=== PATIENT | female | born 1980 | race Caucasian/White ===

== ENCOUNTER 2018-09-10 13:37 | Emergency (ER) | payer OTHER, SELFPAY ==
[2018-09-10 13:40] VITALS: BP 151/83; PULSE 88; RESP 22; TEMP 36.5; O2SAT 99; BMI 22.3
--- NOTE | 2018-09-10 13:45 | DI.RAD.S_ITS ---
PROCEDURE: XR CHEST 1V INDICATIONS: chest pain TECHNIQUE: One view of the chest was acquired. COMPARISON: None. FINDINGS: Surgical changes and devices: None. Lungs and pleura: Lungs are clear. No pleural effusions or pneumothorax. Mediastinum: Mediastinal contours appear normal. Heart size is normal. Bones and chest wall: No suspicious bony lesions. Bilateral acromial-clavicular joint widening may be postoperative or related to prior shoulder injuries. Overlying soft tissues appear unremarkable. IMPRESSION: Unremarkable chest. No acute cardiopulmonary process is evident. Dictated by: Viral Siddiqui M.D. on 09/10/2018 at 13:17 Approved by: Viral Siddiqui M.D. on 09/10/2018 at 13:17
[2018-09-10 14:03] VITALS: BP 148/89; PULSE 94; RESP 9; O2SAT 100
--- NOTE | 2018-09-10 14:03 | ED.CHESTPAIN ---
HPI - Chest Pain General Chief Complaint: Chest Pain Stated Complaint: SOB,LEFT ARM TINGLY Time Seen by Provider: 09/10/18 13:49 Source: patient Mode of arrival: ambulatory Limitations: no limitations History of Present Illness HPI narrative: The patient is a 37-year-old female who presents with sudden onset chest pain. She is taking estrogen after hysterectomy and smoking. She was outside smoking when she had sudden onset shortness of breath and chest pain. she is breathing quite rapidly and quite anxious. Heart rate in the 130s. She is able to slow her breathing down but she does have carpopedal spasms. Sudden onset the left side. Related Data Home Medications Medication Instructions Recorded Confirmed acetaminophen 500 mg PO Q4H PRN #0 01/21/13 09/10/18 amitriptyline 10 mg PO BEDTIME 09/10/18 09/10/18 estradiol 1 mg PO BEDTIME 09/10/18 09/10/18 fluticasone propionate 1 spray INTRANASAL PRN PRN 09/10/18 09/10/18 naproxen sodium [Aleve] 220 mg PO BID PRN 09/10/18 09/10/18 tizanidine 4 mg PO BID PRN 09/10/18 09/10/18 Allergies Allergy/AdvReac Type Severity Reaction Status Date / Time HYDROCODONE Allergy Unknown Uncoded 08/23/17 12:25 Review of Systems Review of Systems ROS Unobtainable: All systems reviewed & are unremarkable except as noted in HPI and below Constitutional Denies chills, Denies fever(s), Denies lethargy and Denies weakness Cardiovascular Reports chest pain, Reports palpitations and Reports dyspnea Respiratory Reports dyspnea Gastrointestinal Gastrointestinal: Denies abdominal pain, Denies change in bowel habits, Denies diarrhea, Denies nausea and Denies vomiting Genitourinary Denies hematuria, Denies flank pain, Denies urinary incontinence and Denies urinary urgency Musculoskeletal Denies back pain, Denies muscle weakness, Denies numbness and Denies tingling Integumentary/Breasts Denies pruritus, Denies erythema, Denies rash and Denies wounds Neurologic Denies confusion, Denies numbness, Denies tingling and Denies weakness Psychiatric Denies anxiety, Denies confusion, Denies depression, Denies homicidal ideation and Denies suicidal ideation Endocrine Reports palpitations [facility] Medical History History of hysterectomy (Acute) Social History Smoking Status: Current every day smoker Social History Smoking Status: Current every day smoker Exam Initial Vital Signs Initial Vital Signs: Vital Signs Temperature 97.7 F 09/10/18 13:40 Pulse Rate 88 09/10/18 13:40 Respiratory Rate 22 09/10/18 13:40 Blood Pressure 151/83 H 09/10/18 13:40 Pulse Oximetry 99 09/10/18 13:40 GENERAL: Alert very anxious female and in no acute distress. HEENT: Head atraumatic,EOMI, pupils reactiv CARDIOVASCULAR: Tachycardic no murmur RESPIRATORY: No respiratory distress no wheezing no rhonchi breath sounds equal bilaterally ABDOMEN: Soft, nontender. Normoactive bowel sounds all 4 quadrants. No guarding or rebound. EXTREMITIES: Normal range of motion, no clubbing or edema. Neurovascularly intact. carpal pedal spasms present NEUROLOGICAL: Alert and oriented x4.Normal gait and speech. Cranial nerves II through XII grossly intact. SKIN: Warm, dry, no laceration, no petechiae, no rashes or lesions. Scores PERC Score Age greater than or equal to 50 years: No Heart rate greater than or equal to 100 bpm: Yes Room Air O2 Sat less than 95%: No Unilateral leg swelling: No Recent trauma or surgery: No Hemoptysis: No Prior PE or DVT: No Hormone Use: Yes Total PERC Score: 2 Wells' Criteria for PE Clinical signs and symptoms of PE: Yes PE is #1 Dx or equally likely: No Heart rate > 100: Yes Immobilization at least 3 days or surg in previous 4 weeks: No History of PE or DVT: No Hemoptysis: No Malignancy w/Treatment within 6 months or palliative: No Wells' PE Score total: 4.5 Course Orders Ordered: ED Orders 09/10/18 13:45 XR chest 1V Stat EKG-12 Lead Stat 09/10/18 13:55 Complete Blood Count AUTO DIFF Stat Comprehensive Metabolic Panel Stat D Dimer Stat Lipase Stat Partial Thromboplastin Time Stat Prothrombin Time INR Stat Troponin & CK Cardiac Panel Stat Discontinued Medications Lorazepam (Ativan) 1 mg IV NOW ONE Stop: 09/10/18 14:04 Last Admin: 09/10/18 14:05 Dose: 1 mg Vital Signs - 8 hr 09/10/18 13:40 09/10/18 14:03 09/10/18 14:30 Temperature 97.7 F Pulse Rate 88 94 H 67 Respiratory Rate 22 9 L 12 Blood Pressure 151/83 H Blood Pressure [Left Arm] 148/89 H 101/64 Pulse Oximetry 99 100 94 09/10/18 15:00 09/10/18 15:30 Temperature Pulse Rate 72 72 Respiratory Rate 12 Blood Pressure Blood Pressure [Left Arm] 100/70 103/66 Pulse Oximetry 93 95 MDM - Chest Pain Lab Data Attestation: I reviewed the patient's lab results. Result diagrams: 09/10/18 13:55 09/10/18 13:55 Lab Results 09/10/18 09/10/18 09/10/18 Range/Units 13:55 13:55 13:55 WBC 7.9 (4.5-11.0) X10^3/uL RBC 4.78 (4.0-5.2) X10^6/uL Hgb 15.0 (12.0-16.0) g/dL Hct 44.3 (36-46) % MCV 92.7 (80-100) fL MCH 31.4 (26-34) PG MCHC 33.9 (30-36) % RDW 13.1 (11.6-14.8) % Plt Count 289 (150-400) X10^3/uL Neut % (Auto) 48.0 L (50-75) % Lymph % (Auto) 44.0 H (25-40) % [place] % (Auto) 5.8 (3-14) % Eos % (Auto) 1.8 L (2-4) % Baso % (Auto) 0.4 (0-2) % Neut # (Auto) 3800 (2341-3916) /uL Lymph # (Auto) 3500 (8053-3006) /uL [place] # (Auto) 500 (0-900) /uL Eos # (Auto) 100 (0-450) /uL Baso # (Auto) 0 (0-100) /uL PT 10.8 (10.1-12.7) SECONDS INR 0.9 (0.9-1.3) APTT 32 (26.4-36.2) SECONDS D-Dimer (<230) ng/mL Sodium 138 (137-145) mmol/L Potassium 3.4 (3.4-5.1) mmol/L Chloride 102 (98-107) mmol/L Carbon Dioxide 22 (22-32) mmol/L BUN 11 (7-17) mg/dL Creatinine 0.90 (0.52-1.04) mg/dL Estimated GFR > 60.0 (>60) mL/min BUN/Creatinine Ratio 12.2 (6-22) Glucose 111 H (70-100) mg/dL Calcium 9.6 (8.4-10.2) mg/dL Total Bilirubin 0.5 (0.2-1.3) mg/dL AST 24 (14-36) IU/L ALT 24 (9-52) IU/L Alkaline Phosphatase 84 (38-126) U/L Total Creatine Kinase 77 (30-135) U/L CK-MB (CK-2) TNP CK-MB (CK-2) Rel Index TNP Troponin I < 0.012 (0.01-0.034) ng/mL Total Protein 8.1 (6.3-8.2) g/dL Albumin 5.1 H (3.5-5.0) g/dL Globulin 3.0 (1.7-4.1) g/dL Albumin/Globulin Ratio 1.7 (1.0-2.8) Lipase 93 (23-300) U/L / Range/Units 13:55 WBC (4.5-11.0) X10^3/uL RBC (4.0-5.2) X10^6/uL Hgb (12.0-16.0) g/dL Hct (36-46) % MCV (80-100) fL MCH (26-34) PG MCHC (30-36) % RDW (11.6-14.8) % Plt Count (150-400) X10^3/uL Neut % (Auto) (50-75) % Lymph % (Auto) (25-40) % [place] % (Auto) (3-14) % Eos % (Auto) (2-4) % Baso % (Auto) (0-2) % Neut # (Auto) (9230-4751) /uL Lymph # (Auto) (3467-3278) /uL [place] # (Auto) (0-900) /uL Eos # (Auto) (0-450) /uL Baso # (Auto) (0-100) /uL PT (10.1-12.7) SECONDS INR (0.9-1.3) APTT (26.4-36.2) SECONDS D-Dimer < 200 (<230) ng/mL Sodium (137-145) mmol/L Potassium (3.4-5.1) mmol/L Chloride (98-107) mmol/L Carbon Dioxide (22-32) mmol/L BUN (7-17) mg/dL Creatinine (0.52-1.04) mg/dL Estimated GFR (>60) mL/min BUN/Creatinine Ratio (6-22) Glucose (70-100) mg/dL Calcium (8.4-10.2) mg/dL Total Bilirubin (0.2-1.3) mg/dL AST (14-36) IU/L ALT (9-52) IU/L Alkaline Phosphatase (38-126) U/L Total Creatine Kinase (30-135) U/L CK-MB (CK-2) CK-MB (CK-2) Rel Index Troponin I (0.01-0.034) ng/mL Total Protein (6.3-8.2) g/dL Albumin (3.5-5.0) g/dL Globulin (1.7-4.1) g/dL Albumin/Globulin Ratio (1.0-2.8) Lipase (23-300) U/L Imaging Data Chest x-ray: Radiologist's impression: PROCEDURE: XR CHEST 1V INDICATIONS: chest pain TECHNIQUE: One view of the chest was acquired. COMPARISON: None. FINDINGS: Surgical changes and devices: None. Lungs and pleura: Lungs are clear. No pleural effusions or pneumothorax. Mediastinum: Mediastinal contours appear normal. Heart size is normal. Bones and chest wall: No suspicious bony lesions. Bilateral acromial-clavicular joint widening may be postoperative or related to prior shoulder injuries. Overlying soft tissues appear unremarkable. IMPRESSION: Unremarkable chest. No acute cardiopulmonary process is evident. Dictated by: Viral Siddiqui M.D. on 09/10/2018 at 13:17 ECG Data Attestation: I personally reviewed and interpreted this ECG as follows: Prior ECG tracings: not available for review Interpretation: Normal sinus rhythm rate 67 SC interval 137, QTC [address] changes no T-wave inversion MDM Narrative Medical decision making narrative: Overall slow her breathing down Ativan helped significantly. Carpal pedal spasms and tachycardia consistent with anxiety reaction. D-dimer negative low risk for PE. X-ray negative for pneumothorax. Overall feeling much better. I think that clinically his this is an anxiety reaction Discharge Plan Departure Patient Disposition: Home Clinical Impression: Anxiety Discharge Date/Time: 09/10/18 15:57 Interventions: ED Discharge Assessment Last Done: 09/10/18 15:55 Instructions: DI for Anxiety -- Adult Activity Restrictions/Additional Instructions: *You have been diagnosed with anxiety reaction *What to do: Stop smoking. May need long-term anxiety medication if this becomes a problem however at this time I do not believe you need medication started *Continue to take medications as directed *Follow up with your primary care provider in 2-3 days *Return to ER if you should have increasing chest pain, shortness of breath or any new, worsening or concerning symptoms Prescriptions: No Action acetaminophen 500 mg Tablet 500 mg PO Q4H PRN (Reason: pain) Qty: 0 RF: 0 tizanidine 4 mg tablet 4 mg PO BID PRN (Reason: Muscle Spasm) RF: 0 estradiol 1 mg tablet 1 mg PO BEDTIME RF: 0 amitriptyline 10 mg tablet 10 mg PO BEDTIME RF: 0 fluticasone propionate 50 mcg/actuation spray,suspension 1 spray Intranasal PRN PRN (Reason: Allergy Symptoms) RF: 0 naproxen sodium [Aleve] 220 mg Tablet 220 mg PO BID PRN (Reason: pain) RF: 0
[2018-09-10] MEDS: LORazepam 2 MG/ML SYRINGE 1 MG IV (14:05)
[2018-09-10 14:08] LABS: Add Manual Diff / Slide Review NO; Basophils Absolute Auto 0 /uL (0-100); Basophils Percent Auto 0.4 % (0-2); Eosinophils Absolute Auto 100 /uL (0-450); Eosinophils Percent Auto 1.8 % (2-4); Hematocrit 44.3 % (36-46); Lymphocytes Absolute Auto 3500 /uL (1100-4500); Mean Corpuscular HGB Conc 33.9 % (30-36); Mean Corpuscular Hemoglobin 31.4 PG (26-34); Mean Corpuscular Volume 92.7 fL (80-100); Monocytes Absolute Auto 500 /uL (0-900); Monocytes Percent Auto 5.8 % (3-14); Neutrophils Absolute Auto 3800 /uL (1500-7000); Platelet Count 289 X10^3/uL (150-400); Red Blood Cell Count 4.78 X10^6/uL (4.0-5.2); Red Cell Distribution Width 13.1 % (11.6-14.8); White Blood Cell Count 7.9 X10^3/uL (4.5-11.0)
--- NOTE | 2018-09-10 14:08 | ED_ITS ---
HPI - Chest Pain General Chief Complaint: Chest Pain Stated Complaint: SOB,LEFT ARM TINGLY Time Seen by Provider: 09/10/18 13:49 Source: patient Mode of arrival: ambulatory Limitations: no limitations History of Present Illness HPI narrative: The patient is a 37-year-old female who presents with sudden onset chest pain. She is taking estrogen after hysterectomy and smoking. She was outside smoking when she had sudden onset shortness of breath and chest pain. she is breathing quite rapidly and quite anxious. Heart rate in the 130s. She is able to slow her breathing down but she does have carpopedal spasms. Sudden onset the left side. Related Data Home Medications Medication Instructions Recorded Confirmed acetaminophen 500 mg PO Q4H PRN #0 01/21/13 09/10/18 amitriptyline 10 mg PO BEDTIME 09/10/18 09/10/18 estradiol 1 mg PO BEDTIME 09/10/18 09/10/18 fluticasone propionate 1 spray INTRANASAL PRN PRN 09/10/18 09/10/18 naproxen sodium [Aleve] 220 mg PO BID PRN 09/10/18 09/10/18 tizanidine 4 mg PO BID PRN 09/10/18 09/10/18 Allergies Allergy/AdvReac Type Severity Reaction Status Date / Time HYDROCODONE Allergy Unknown Uncoded 08/23/17 12:25 Review of Systems Review of Systems ROS Unobtainable: All systems reviewed & are unremarkable except as noted in HPI and below Constitutional Denies chills, Denies fever(s), Denies lethargy and Denies weakness Cardiovascular Reports chest pain, Reports palpitations and Reports dyspnea Respiratory Reports dyspnea Gastrointestinal Gastrointestinal: Denies abdominal pain, Denies change in bowel habits, Denies diarrhea, Denies nausea and Denies vomiting Genitourinary Denies hematuria, Denies flank pain, Denies urinary incontinence and Denies urinary urgency Musculoskeletal Denies back pain, Denies muscle weakness, Denies numbness and Denies tingling Integumentary/Breasts Denies pruritus, Denies erythema, Denies rash and Denies wounds Neurologic Denies confusion, Denies numbness, Denies tingling and Denies weakness Psychiatric Denies anxiety, Denies confusion, Denies depression, Denies homicidal ideation and Denies suicidal ideation Endocrine Reports palpitations [facility] Medical History History of hysterectomy (Acute) Social History Smoking Status: Current every day smoker Social History Smoking Status: Current every day smoker Exam Initial Vital Signs Initial Vital Signs: Vital Signs Temperature 97.7 F 09/10/18 13:40 Pulse Rate 88 09/10/18 13:40 Respiratory Rate 22 09/10/18 13:40 Blood Pressure 151/83 H 09/10/18 13:40 Pulse Oximetry 99 09/10/18 13:40 GENERAL: Alert very anxious female and in no acute distress. HEENT: Head atraumatic,EOMI, pupils reactiv CARDIOVASCULAR: Tachycardic no murmur RESPIRATORY: No respiratory distress no wheezing no rhonchi breath sounds equal bilaterally ABDOMEN: Soft, nontender. Normoactive bowel sounds all 4 quadrants. No guarding or rebound. EXTREMITIES: Normal range of motion, no clubbing or edema. Neurovascularly intact. carpal pedal spasms present NEUROLOGICAL: Alert and oriented x4.Normal gait and speech. Cranial nerves II through XII grossly intact. SKIN: Warm, dry, no laceration, no petechiae, no rashes or lesions. Scores PERC Score Age greater than or equal to 50 years: No Heart rate greater than or equal to 100 bpm: Yes Room Air O2 Sat less than 95%: No Unilateral leg swelling: No Recent trauma or surgery: No Hemoptysis: No Prior PE or DVT: No Hormone Use: Yes Total PERC Score: 2 Wells' Criteria for PE Clinical signs and symptoms of PE: Yes PE is #1 Dx or equally likely: No Heart rate > 100: Yes Immobilization at least 3 days or surg in previous 4 weeks: No History of PE or DVT: No Hemoptysis: No Malignancy w/Treatment within 6 months or palliative: No Wells' PE Score total: 4.5 Course Orders Ordered: ED Orders 09/10/18 13:45 XR chest 1V Stat EKG-12 Lead Stat 09/10/18 13:55 Complete Blood Count AUTO DIFF Stat Comprehensive Metabolic Panel Stat D Dimer Stat Lipase Stat Partial Thromboplastin Time Stat Prothrombin Time INR Stat Troponin & CK Cardiac Panel Stat Discontinued Medications Lorazepam (Ativan) 1 mg IV NOW ONE Stop: 09/10/18 14:04 Last Admin: 09/10/18 14:05 Dose: 1 mg Vital Signs - 8 hr 09/10/18 13:40 09/10/18 14:03 09/10/18 14:30 Temperature 97.7 F Pulse Rate 88 94 H 67 Respiratory Rate 22 9 L 12 Blood Pressure 151/83 H Blood Pressure [Left Arm] 148/89 H 101/64 Pulse Oximetry 99 100 94 09/10/18 15:00 09/10/18 15:30 Temperature Pulse Rate 72 72 Respiratory Rate 12 Blood Pressure Blood Pressure [Left Arm] 100/70 103/66 Pulse Oximetry 93 95 MDM - Chest Pain Lab Data Attestation: I reviewed the patient's lab results. Result diagrams: 09/10/18 13:55 09/10/18 13:55 Lab Results 09/10/18 09/10/18 09/10/18 Range/Units 13:55 13:55 13:55 WBC 7.9 (4.5-11.0) X10^3/uL RBC 4.78 (4.0-5.2) X10^6/uL Hgb 15.0 (12.0-16.0) g/dL Hct 44.3 (36-46) % MCV 92.7 (80-100) fL MCH 31.4 (26-34) PG MCHC 33.9 (30-36) % RDW 13.1 (11.6-14.8) % Plt Count 289 (150-400) X10^3/uL Neut % (Auto) 48.0 L (50-75) % Lymph % (Auto) 44.0 H (25-40) % [place] % (Auto) 5.8 (3-14) % Eos % (Auto) 1.8 L (2-4) % Baso % (Auto) 0.4 (0-2) % Neut # (Auto) 3800 (1802-8866) /uL Lymph # (Auto) 3500 (7059-1497) /uL [place] # (Auto) 500 (0-900) /uL Eos # (Auto) 100 (0-450) /uL Baso # (Auto) 0 (0-100) /uL PT 10.8 (10.1-12.7) SECONDS INR 0.9 (0.9-1.3) APTT 32 (26.4-36.2) SECONDS D-Dimer (<230) ng/mL Sodium 138 (137-145) mmol/L Potassium 3.4 (3.4-5.1) mmol/L Chloride 102 (98-107) mmol/L Carbon Dioxide 22 (22-32) mmol/L BUN 11 (7-17) mg/dL Creatinine 0.90 (0.52-1.04) mg/dL Estimated GFR > 60.0 (>60) mL/min BUN/Creatinine Ratio 12.2 (6-22) Glucose 111 H (70-100) mg/dL Calcium 9.6 (8.4-10.2) mg/dL Total Bilirubin 0.5 (0.2-1.3) mg/dL AST 24 (14-36) IU/L ALT 24 (9-52) IU/L Alkaline Phosphatase 84 (38-126) U/L Total Creatine Kinase 77 (30-135) U/L CK-MB (CK-2) TNP CK-MB (CK-2) Rel Index TNP Troponin I < 0.012 (0.01-0.034) ng/mL Total Protein 8.1 (6.3-8.2) g/dL Albumin 5.1 H (3.5-5.0) g/dL Globulin 3.0 (1.7-4.1) g/dL Albumin/Globulin Ratio 1.7 (1.0-2.8) Lipase 93 (23-300) U/L / Range/Units 13:55 WBC (4.5-11.0) X10^3/uL RBC (4.0-5.2) X10^6/uL Hgb (12.0-16.0) g/dL Hct (36-46) % MCV (80-100) fL MCH (26-34) PG MCHC (30-36) % RDW (11.6-14.8) % Plt Count (150-400) X10^3/uL Neut % (Auto) (50-75) % Lymph % (Auto) (25-40) % [place] % (Auto) (3-14) % Eos % (Auto) (2-4) % Baso % (Auto) (0-2) % Neut # (Auto) (8031-5884) /uL Lymph # (Auto) (1419-4753) /uL [place] # (Auto) (0-900) /uL Eos # (Auto) (0-450) /uL Baso # (Auto) (0-100) /uL PT (10.1-12.7) SECONDS INR (0.9-1.3) APTT (26.4-36.2) SECONDS D-Dimer < 200 (<230) ng/mL Sodium (137-145) mmol/L Potassium (3.4-5.1) mmol/L Chloride (98-107) mmol/L Carbon Dioxide (22-32) mmol/L BUN (7-17) mg/dL Creatinine (0.52-1.04) mg/dL Estimated GFR (>60) mL/min BUN/Creatinine Ratio (6-22) Glucose (70-100) mg/dL Calcium (8.4-10.2) mg/dL Total Bilirubin (0.2-1.3) mg/dL AST (14-36) IU/L ALT (9-52) IU/L Alkaline Phosphatase (38-126) U/L Total Creatine Kinase (30-135) U/L CK-MB (CK-2) CK-MB (CK-2) Rel Index Troponin I (0.01-0.034) ng/mL Total Protein (6.3-8.2) g/dL Albumin (3.5-5.0) g/dL Globulin (1.7-4.1) g/dL Albumin/Globulin Ratio (1.0-2.8) Lipase (23-300) U/L Imaging Data Chest x-ray: Radiologist's impression: PROCEDURE: XR CHEST 1V INDICATIONS: chest pain TECHNIQUE: One view of the chest was acquired. COMPARISON: None. FINDINGS: Surgical changes and devices: None. Lungs and pleura: Lungs are clear. No pleural effusions or pneumothorax. Mediastinum: Mediastinal contours appear normal. Heart size is normal. Bones and chest wall: No suspicious bony lesions. Bilateral acromial- clavicular joint widening may be postoperative or related to prior shoulder injuries. Overlying soft tissues appear unremarkable. IMPRESSION: Unremarkable chest. No acute cardiopulmonary process is evident. Dictated by: Viral Siddiqui M.D. on 09/10/2018 at 13:17 ECG Data Attestation: I personally reviewed and interpreted this ECG as follows: Prior ECG tracings: not available for review Interpretation: Normal sinus rhythm rate 67 AL interval 137, QTC [address] changes no T-wave inversion MDM Narrative Medical decision making narrative: Overall slow her breathing down Ativan helped significantly. Carpal pedal spasms and tachycardia consistent with anxiety reaction. D-dimer negative low risk for PE. X-ray negative for pneumothorax. Overall feeling much better. I think that clinically his this is an anxiety reaction Discharge Plan Departure Patient Disposition: Home Clinical Impression: Anxiety Discharge Date/Time: 09/10/18 15:57 Interventions: ED Discharge Assessment Last Done: 09/10/18 15:55 Instructions: DI for Anxiety -- Adult Activity Restrictions/Additional Instructions: *You have been diagnosed with anxiety reaction *What to do: Stop smoking. May need long-term anxiety medication if this becomes a problem however at this time I do not believe you need medication started *Continue to take medications as directed *Follow up with your primary care provider in 2-3 days *Return to ER if you should have increasing chest pain, shortness of breath or any new, worsening or concerning symptoms Prescriptions: No Action acetaminophen 500 mg Tablet 500 mg PO Q4H PRN (Reason: pain) Qty: 0 RF: 0 tizanidine 4 mg tablet 4 mg PO BID PRN (Reason: Muscle Spasm) RF: 0 estradiol 1 mg tablet 1 mg PO BEDTIME RF: 0 amitriptyline 10 mg tablet 10 mg PO BEDTIME RF: 0 fluticasone propionate 50 mcg/actuation spray,suspension 1 spray Intranasal PRN PRN (Reason: Allergy Symptoms) RF: 0 naproxen sodium [Aleve] 220 mg Tablet 220 mg PO BID PRN (Reason: pain) RF: 0
[2018-09-10 14:20] LABS: INR 0.9 (0.9-1.3); Prothrombin Time 10.8 SECONDS (10.1-12.7)
[2018-09-10 14:23] LABS: PTT Partial Thromboplastin Tim 32 SECONDS (26.4-36.2)
[2018-09-10 14:26] LABS: Alanine Aminotransferase 24 IU/L (9-52); Albumin 5.1 g/dL (3.5-5.0); Albumin Globulin Ratio 1.7 (1.0-2.8); Alkaline Phosphatase 84 U/L (38-126); Aspartate Aminotransferase 24 IU/L (14-36); BUN Creatinine Ratio 12.2 (6-22); Bilirubin Total 0.5 mg/dL (0.2-1.3); Blood Urea Nitrogen 11 mg/dL (7-17); Calcium 9.6 mg/dL (8.4-10.2); Carbon Dioxide 22 mmol/L (22-32); Chloride 102 mmol/L (98-107); Creatine Kinase 77 U/L (30-135); D Dimer < 200 ng/mL (<230); Estimated Glomerular Filt Rate > 60.0 mL/min (>60); Glucose 111 mg/dL (70-100); HEMOLYSIS < 15 (0-50); Lipase 93 U/L (23-300); Potassium 3.4 mmol/L (3.4-5.1); Sodium 138 mmol/L (137-145); Total Protein 8.1 g/dL (6.3-8.2)
--- NOTE | 2018-09-10 14:26 | PC.NURSE ---
Pt had sudden onset left arm tingling and numbness, she was outside smoking a cigarette. She drove all the way here from [place] related to her dislike of the other hospital. pt arrived walking, and anxious, carpal pedal spasms in her hands. She's since been able to relax her breathing, and understand the process that is causing her cramping in her hands and the numbness she is feeling. We talked about cigarette smoking and estrogen and how that makes her at risk for cardiovascular sequela. pt understands this.
[2018-09-10 14:30] VITALS: BP 101/64; PULSE 67; RESP 12; O2SAT 94
[2018-09-10 14:37] LABS: Troponin I < 0.012 ng/mL (0.01-0.034)
[2018-09-10 15:00] VITALS: BP 100/70; PULSE 72; O2SAT 93
[2018-09-10 15:30] VITALS: BP 103/66; PULSE 72; RESP 12; O2SAT 95
== END 2018-09-10 15:57 | disposition home or self-care (01) ==
PROVIDERS: Emergency Provider Emergency Medicine
DX: F41.9 Anxiety disorder, unspecified (principal); R07.89 Other chest pain; R06.02 Shortness of breath; R00.0 Tachycardia, unspecified; R20.2 Paresthesia of skin
CPT/HCPCS: 36591; 71045; 80053; 82550; 83690; 84484; 85025; 85379; 85610; 85730; 93005; 96374; 99283; 99285; J2060

== ENCOUNTER 2018-10-22 18:39 | Emergency (ER) | payer OTHER, SELFPAY ==
[2018-10-22 18:42] VITALS: BP 133/89; PULSE 74; RESP 16; O2SAT 100; BMI 21.9
--- NOTE | 2018-10-22 18:49 | DI.RAD.S_ITS ---
PROCEDURE: XR CHEST 1V INDICATIONS: chest pain TECHNIQUE: One view of the chest was acquired. COMPARISON: [facility], CR, XR CHEST 1V, 09/10/2018, 13:51. FINDINGS: Surgical changes and devices: None. Lungs and pleura: Lungs are clear. No pleural effusions or pneumothorax. Mediastinum: Mediastinal contours appear normal. Heart size is normal. Bones and chest wall: No suspicious bony lesions. Overlying soft tissues appear unremarkable. IMPRESSION: 1. No acute cardiopulmonary disease. Dictated by: Tenzin Khan M.D. on 10/22/2018 at 19:38 Approved by: Tenzin Khan M.D. on 10/22/2018 at 19:38
[2018-10-22 19:00] VITALS: BP 113/79; PULSE 67; RESP 13; O2SAT 99
[2018-10-22 19:07] LABS: Add Manual Diff / Slide Review NO; Basophils Absolute Auto 0 /uL (0-100); Basophils Percent Auto 0.4 % (0-2); Eosinophils Absolute Auto 200 /uL (0-450); Eosinophils Percent Auto 1.9 % (2-4); Hematocrit 40.8 % (36-46); Lymphocytes Absolute Auto 3300 /uL (1100-4500); Lymphocytes Percent Auto 35.9 % (25-40); Mean Corpuscular HGB Conc 34.2 % (30-36); Mean Corpuscular Hemoglobin 31.4 PG (26-34); Mean Corpuscular Volume 91.7 fL (80-100); Monocytes Absolute Auto 700 /uL (0-900); Monocytes Percent Auto 7.2 % (3-14); Neutrophils Absolute Auto 4900 /uL (1500-7000); Neutrophils Percent Auto 54.6 % (50-75); Platelet Count 262 X10^3/uL (150-400); Red Blood Cell Count 4.45 X10^6/uL (4.0-5.2); Red Cell Distribution Width 12.9 % (11.6-14.8); White Blood Cell Count 9.1 X10^3/uL (4.5-11.0)
[2018-10-22 19:13] LABS: HEMOLYSIS < 15 (0-50)
[2018-10-22 19:16] LABS: Prothrombin Time 11.7 SECONDS (10.1-12.7)
[2018-10-22 19:19] LABS: PTT Partial Thromboplastin Tim 34 SECONDS (26.4-36.2)
[2018-10-22 19:20] LABS: Alanine Aminotransferase 14 IU/L (9-52); Albumin 4.4 g/dL (3.5-5.0); Albumin Globulin Ratio 1.5 (1.0-2.8); Alkaline Phosphatase 64 U/L (38-126); Aspartate Aminotransferase 22 IU/L (14-36); BUN Creatinine Ratio 24.3 (6-22); Bilirubin Total 0.4 mg/dL (0.2-1.3); Blood Urea Nitrogen 17 mg/dL (7-17); Calcium 9.8 mg/dL (8.4-10.2); Carbon Dioxide 30 mmol/L (22-32); Chloride 100 mmol/L (98-107); Creatine Kinase 80 U/L (30-135); Estimated Glomerular Filt Rate > 60.0 mL/min (>60); Globulin 2.9 g/dL (1.7-4.1); Glucose 97 mg/dL (70-100); Lipase 73 U/L (23-300); Potassium 3.6 mmol/L (3.4-5.1); Sodium 138 mmol/L (137-145); Total Protein 7.3 g/dL (6.3-8.2)
[2018-10-22 19:30] VITALS: BP 114/69; PULSE 62; RESP 13; O2SAT 98
[2018-10-22 19:33] LABS: Troponin I < 0.012 ng/mL (0.01-0.034)
--- NOTE | 2018-10-22 21:08 | ED.CHESTPAIN ---
HPI - Chest Pain General Chief Complaint: Chest Pain Stated Complaint: pain in left leg Time Seen by Provider: 10/22/18 20:36 Source: patient Mode of arrival: ambulatory Limitations: no limitations History of Present Illness HPI narrative: Patient is a 37-year-old female who presents with left-sided chest discomfort in left behind the knee pain. She has had left posterior knee pain ongoing for the last 3-4 days. His she denies any swelling pain with walking. She describes as more of an ache. No pain in her calf. Today she was at work sitting at her desk when she had sudden onset left-sided chest pain, which lasted under 1 minutes and is now gone. She is being worked up for asthma by high school history teacher and going to an ross lift operator. She does have some intermittent shortness of breath. She says today was not that much worse. MD complaint: chest pain and other (Left knee pain) Related Data Home Medications Medication Instructions Recorded Confirmed acetaminophen 500 mg PO Q4H PRN #0 01/21/13 09/10/18 amitriptyline 10 mg PO BEDTIME 09/10/18 09/10/18 estradiol 1 mg PO BEDTIME 09/10/18 09/10/18 fluticasone propionate 1 spray INTRANASAL PRN PRN 09/10/18 09/10/18 naproxen sodium [Aleve] 220 mg PO BID PRN 09/10/18 09/10/18 tizanidine 4 mg PO BID PRN 09/10/18 09/10/18 Allergies Allergy/AdvReac Type Severity Reaction Status Date / Time hydrocodone Allergy Verified 10/22/18 18:42 Review of Systems Review of Systems ROS Unobtainable: All systems reviewed & are unremarkable except as noted in HPI and below Constitutional Denies fatigue Eyes Denies change in vision, Denies eye discharge, Denies irritation and Denies loss of vision ENT Ears, Nose, Mouth, and Throat: Denies change in voice, Denies neck pain and Denies sore throat Cardiovascular Reports as per HPI and Denies dyspnea Respiratory Reports as per HPI, Denies cough, Denies hemoptysis and Denies dyspnea Gastrointestinal Gastrointestinal: Denies abdominal pain, Denies change in bowel habits, Denies diarrhea, Denies nausea and Denies vomiting Genitourinary Denies hematuria, Denies flank pain, Denies urinary incontinence and Denies urinary urgency Musculoskeletal Reports as per HPI and Denies neck pain Neurologic Denies confusion and Denies loss of vision Psychiatric Denies anxiety, Denies confusion, Denies depression, Denies homicidal ideation and Denies suicidal ideation Endocrine Denies fatigue and Denies flushing [facility] Medical History History of hysterectomy (Acute) Social History Smoking Status: Current every day smoker Social History Smoking Status: Current every day smoker Exam Initial Vital Signs Initial Vital Signs: Vital Signs Pulse Rate 74 10/22/18 18:42 Respiratory Rate 16 10/22/18 18:42 Blood Pressure 133/89 10/22/18 18:42 Pulse Oximetry 100 10/22/18 18:42 GENERAL: Well-appearing, well-nourished and in no acute distress. HEENT: Head atraumatic,EOMI, pupils reactive, face symmetric, moist mucous membranes CARDIOVASCULAR: Regular rate and rhythm without murmurs, rubs or gallops. RESPIRATORY: Breath sounds equal bilaterally, no wheezes rales or rhonchi. ABDOMEN: Soft, nontender. Normoactive bowel sounds all 4 quadrants. No guarding or rebound. EXTREMITIES: Normal range of motion, no clubbing or edema. Neurovascularly intact. Left knee stable no tenderness no swelling posteriorly. No calf pain. Able flex and extend knee easily. NEUROLOGICAL: Alert and oriented x4.Normal gait and speech. Cranial nerves II through XII grossly intact. SKIN: Warm, dry, no laceration, no petechiae, no rashes or lesions. Scores PERC Score Age greater than or equal to 50 years: No Heart rate greater than or equal to 100 bpm: No Room Air O2 Sat less than 95%: No Unilateral leg swelling: No Recent trauma or surgery: No Hemoptysis: No Prior PE or DVT: No Hormone Use: Yes Total PERC Score: 1 Wells' Criteria for PE Clinical signs and symptoms of PE: No PE is #1 Dx or equally likely: No Heart rate > 100: No Immobilization at least 3 days or surg in previous 4 weeks: No History of PE or DVT: No Hemoptysis: No Malignancy w/Treatment within 6 months or palliative: No Wells' PE Score total: 0 Wells' Criteria for DVT Active Cancer (Treatment within 6 months): No Bedridden recently >3 days or major surgery within 4 weeks: No Calf Swelling >3cm compared to other leg: No Collateral (nonvericose) superficial veins present: No Entire leg swollen: No Localized tenderness along the deep vein system: Yes Pitting edema, confined to symtomatic leg: No Paralysis, paresis, or recent plaster immobilization of ext: No Previously documented DVT: No Alternative dx to DVT as likely or more likely: No Wells' criteria for DVT: 1 Course Orders Ordered: ED Orders 10/22/18 18:49 XR chest 1V Stat EKG-12 Lead Stat 10/22/18 18:59 Complete Blood Count AUTO DIFF Stat Comprehensive Metabolic Panel Stat D Dimer Stat Lipase Stat Partial Thromboplastin Time Stat Prothrombin Time INR Stat Troponin & CK Cardiac Panel Stat 10/22/18 22:21 US periph venous low extrem lt Stat Vital Signs - 8 hr 10/22/18 18:42 10/22/18 19:00 10/22/18 19:30 Pulse Rate 74 67 62 Respiratory Rate 16 13 13 Blood Pressure 133/89 Blood Pressure [Left Arm] 113/79 114/69 Pulse Oximetry 100 99 98 10/22/18 23:43 Pulse Rate 65 Respiratory Rate 15 Blood Pressure 120/85 Blood Pressure [Left Arm] Pulse Oximetry 96 MDM - Chest Pain Lab Data Attestation: I reviewed the patient's lab results. Result diagrams: 10/22/18 18:59 10/22/18 18:59 Lab Results 10/22/18 10/22/18 10/22/18 Range/Units 18:59 18:59 18:59 WBC 9.1 (4.5-11.0) X10^3/uL RBC 4.45 (4.0-5.2) X10^6/uL Hgb 14.0 (12.0-16.0) g/dL Hct 40.8 (36-46) % MCV 91.7 (80-100) fL MCH 31.4 (26-34) PG MCHC 34.2 (30-36) % RDW 12.9 (11.6-14.8) % Plt Count 262 (150-400) X10^3/uL Neut % (Auto) 54.6 (50-75) % Lymph % (Auto) 35.9 (25-40) % [place] % (Auto) 7.2 (3-14) % Eos % (Auto) 1.9 L (2-4) % Baso % (Auto) 0.4 (0-2) % Neut # (Auto) 4900 (4256-8333) /uL Lymph # (Auto) 3300 (8250-7748) /uL [place] # (Auto) 700 (0-900) /uL Eos # (Auto) 200 (0-450) /uL Baso # (Auto) 0 (0-100) /uL PT 11.7 (10.1-12.7) SECONDS INR 1.0 (0.9-1.3) APTT 34 D (26.4-36.2) SECONDS D-Dimer (<230) ng/mL Sodium 138 (137-145) mmol/L Potassium 3.6 (3.4-5.1) mmol/L Chloride 100 (98-107) mmol/L Carbon Dioxide 30 (22-32) mmol/L BUN 17 (7-17) mg/dL Creatinine 0.70 (0.52-1.04) mg/dL Estimated GFR > 60.0 (>60) mL/min BUN/Creatinine Ratio 24.3 H (6-22) Glucose 97 (70-100) mg/dL Calcium 9.8 (8.4-10.2) mg/dL Total Bilirubin 0.4 (0.2-1.3) mg/dL AST 22 (14-36) IU/L ALT 14 (9-52) IU/L Alkaline Phosphatase 64 (38-126) U/L Total Creatine Kinase 80 (30-135) U/L CK-MB (CK-2) TNP CK-MB (CK-2) Rel Index TNP Troponin I < 0.012 (0.01-0.034) ng/mL Total Protein 7.3 (6.3-8.2) g/dL Albumin 4.4 (3.5-5.0) g/dL Globulin 2.9 (1.7-4.1) g/dL Albumin/Globulin Ratio 1.5 (1.0-2.8) Lipase 73 (23-300) U/L 10/22/18 Range/Units 18:59 WBC (4.5-11.0) X10^3/uL RBC (4.0-5.2) X10^6/uL Hgb (12.0-16.0) g/dL Hct (36-46) % MCV (80-100) fL MCH (26-34) PG MCHC (30-36) % RDW (11.6-14.8) % Plt Count (150-400) X10^3/uL Neut % (Auto) (50-75) % Lymph % (Auto) (25-40) % [place] % (Auto) (3-14) % Eos % (Auto) (2-4) % Baso % (Auto) (0-2) % Neut # (Auto) (2639-9784) /uL Lymph # (Auto) (2620-8829) /uL [place] # (Auto) (0-900) /uL Eos # (Auto) (0-450) /uL Baso # (Auto) (0-100) /uL PT (10.1-12.7) SECONDS INR (0.9-1.3) APTT (26.4-36.2) SECONDS D-Dimer < 200 (<230) ng/mL Sodium (137-145) mmol/L Potassium (3.4-5.1) mmol/L Chloride (98-107) mmol/L Carbon Dioxide (22-32) mmol/L BUN (7-17) mg/dL Creatinine (0.52-1.04) mg/dL Estimated GFR (>60) mL/min BUN/Creatinine Ratio (6-22) Glucose (70-100) mg/dL Calcium (8.4-10.2) mg/dL Total Bilirubin (0.2-1.3) mg/dL AST (14-36) IU/L ALT (9-52) IU/L Alkaline Phosphatase (38-126) U/L Total Creatine Kinase (30-135) U/L CK-MB (CK-2) CK-MB (CK-2) Rel Index Troponin I (0.01-0.034) ng/mL Total Protein (6.3-8.2) g/dL Albumin (3.5-5.0) g/dL Globulin (1.7-4.1) g/dL Albumin/Globulin Ratio (1.0-2.8) Lipase (23-300) U/L Point of Care Testing Test Results Negative Urine Dip Bedside Urine Glucose Negative Bedside Urine Bilirubin - Negative Bedside Urine Ketone - Negative Urine Specific [place] 1.010 Bedside Urine Occult Blood - Negative Bedside Urine pH 7.5 Bedside Urine Protein - Negative Bedside Urine Urobilinogen - Negative Bedside Urine Nitrite - Negative Bedside Urine Leukocytes - Negative Esterase Imaging Data Chest x-ray: Radiologist's impression: PROCEDURE: XR CHEST 1V INDICATIONS: chest pain TECHNIQUE: One view of the chest was acquired. COMPARISON: [facility], , XR CHEST 1V, 09/10/2018, 13:51. FINDINGS: Surgical changes and devices: None. Lungs and pleura: Lungs are clear. No pleural effusions or pneumothorax. Mediastinum: Mediastinal contours appear normal. Heart size is normal. Bones and chest wall: No suspicious bony lesions. Overlying soft tissues appear unremarkable. IMPRESSION: 1. No acute cardiopulmonary disease. Dictated by: Tenzin Khan M.D. on 10/22/2018 at 19:38 Venous US: Radiologist's impression: mine shifter report negative for DVT ECG Data Attestation: I personally reviewed and interpreted this ECG as follows: Prior ECG tracings: available for review Interpretation: Normal sinus rhythm rate [address] changes no T-wave inversions. MDM Narrative Medical decision making narrative: Patient is low risk risk factors estrogen and nicotine/tobacco for DVT D-dimer is negative. Patient states that pain radiates from left posterior knee to her upper and lower leg. Concerned is still because of flight upcoming to [place] in 3 days. Ultrasound ordered Ultrasound is negative for DVT. Patient feels ready and able to go home. Discharge Plan Departure Patient Disposition: Home Clinical Impression: Atypical chest pain Acute knee pain Qualifiers: Laterality: left Qualified Code(s): M25.562 - Pain in left knee Discharge Date/Time: 10/22/18 23:45 Interventions: ED Discharge Assessment Last Done: 10/22/18 23:43 Instructions: Deep Vein Thrombosis, DI for Atypical Chest Pain Activity Restrictions/Additional Instructions: *You have been diagnosed with atypical chest pain, knee pain *What to do: Knee pain may be due to a Ta cyst. Blood work is reassuring today. Low risk for blood clot. I recommended that he do calf exercises and is walking on airplane every few hours to help prevent blood clots. *Continue to take medications as directed *Follow up with your primary care provider in 2-3 days *Return to ER if you should have increasing chest pain, shortness of breath, leg swelling or pain or any new, worsening or concerning symptoms Prescriptions: No Action acetaminophen 500 mg Tablet 500 mg PO Q4H PRN (Reason: pain) Qty: 0 RF: 0 tizanidine 4 mg tablet 4 mg PO BID PRN (Reason: Muscle Spasm) RF: 0 estradiol 1 mg tablet 1 mg PO BEDTIME RF: 0 amitriptyline 10 mg tablet 10 mg PO BEDTIME RF: 0 fluticasone propionate 50 mcg/actuation spray,suspension 1 spray Intranasal PRN PRN (Reason: Allergy Symptoms) RF: 0 naproxen sodium [Aleve] 220 mg Tablet 220 mg PO BID PRN (Reason: pain) RF: 0 Referrals: [facility] [Provider Group]
--- NOTE | 2018-10-22 21:21 | ED_ITS ---
HPI - Chest Pain General Chief Complaint: Chest Pain Stated Complaint: pain in left leg Time Seen by Provider: 10/22/18 20:36 Source: patient Mode of arrival: ambulatory Limitations: no limitations History of Present Illness HPI narrative: Patient is a 37-year-old female who presents with left-sided chest discomfort in left behind the knee pain. She has had left posterior knee pain ongoing for the last 3-4 days. His she denies any swelling pain with walking. She describes as more of an ache. No pain in her calf. Today she was at work sitting at her desk when she had sudden onset left-sided chest pain, whi ch lasted under 1 minutes and is now gone. She is being worked up for asthma by receivable clerk and going to an chef french. She does have some intermittent shortness of breath. She says today was not that much worse. MD complaint: chest pain and other (Left knee pain) Related Data Home Medications Medication Instructions Recorded Confirmed acetaminophen 500 mg PO Q4H PRN #0 01/21/13 09/10/18 amitriptyline 10 mg PO BEDTIME 09/10/18 09/10/18 estradiol 1 mg PO BEDTIME 09/10/18 09/10/18 fluticasone propionate 1 spray INTRANASAL PRN PRN 09/10/18 09/10/18 naproxen sodium [Aleve] 220 mg PO BID PRN 09/10/18 09/10/18 tizanidine 4 mg PO BID PRN 09/10/18 09/10/18 Allergies Allergy/AdvReac Type Severity Reaction Status Date / Time hydrocodone Allergy Verified 10/22/18 18:42 Review of Systems Review of Systems ROS Unobtainable: All systems reviewed & are unremarkable except as noted in HPI and below Constitutional Denies fatigue Eyes Denies change in vision, Denies eye discharge, Denies irritation and Denies loss of vision ENT Ears, Nose, Mouth, and Throat: Denies change in voice, Denies neck pain and Denies sore throat Cardiovascular Reports as per HPI and Denies dyspnea Respiratory Reports as per HPI, Denies cough, Denies hemoptysis and Denies dyspnea Gastrointestinal Gastrointestinal: Denies abdominal pain, Denies change in bowel habits, Denies diarrhea, Denies nausea and Denies vomiting Genitourinary Denies hematuria, Denies flank pain, Denies urinary incontinence and Denies urinary urgency Musculoskeletal Reports as per HPI and Denies neck pain Neurologic Denies confusion and Denies loss of vision Psychiatric Denies anxiety, Denies confusion, Denies depression, Denies homicidal ideation and Denies suicidal ideation Endocrine Denies fatigue and Denies flushing PFSH Medical History History of hysterectomy (Acute) Social History Smoking Status: Current every day smoker Social History Smoking Status: Current every day smoker Exam Initial Vital Signs Initial Vital Signs: Vital Signs Pulse Rate 74 10/22/18 18:42 Respiratory Rate 16 10/22/18 18:42 Blood Pressure 133/89 10/22/18 18:42 Pulse Oximetry 100 10/22/18 18:42 GENERAL: Well-appearing, well-nourished and in no acute distress. HEENT: Head atraumatic,EOMI, pupils reactive, face symmetric, moist mucous membranes CARDIOVASCULAR: Regular rate and rhythm without murmurs, rubs or gallops. RESPIRATORY: Breath sounds equal bilaterally, no wheezes rales or rhonchi. ABDOMEN: Soft, nontender. Normoactive bowel sounds all 4 quadrants. No guarding or rebound. EXTREMITIES: Normal range of motion, no clubbing or edema. Neurovascularly intact. Left knee stable no tenderness no swelling posteriorly. No calf pain. Able flex and extend knee easily. NEUROLOGICAL: Alert and oriented x4.Normal gait and speech. Cranial nerves II through XII grossly intact. SKIN: Warm, dry, no laceration, no petechiae, no rashes or lesions. Scores PERC Score Age greater than or equal to 50 years: No Heart rate greater than or equal to 100 bpm: No Room Air O2 Sat less than 95%: No Unilateral leg swelling: No Recent trauma or surgery: No Hemoptysis: No Prior PE or DVT: No Hormone Use: Yes Total PERC Score: 1 Wells' Criteria for PE Clinical signs and symptoms of PE: No PE is #1 Dx or equally likely: No Heart rate > 100: No Immobilization at least 3 days or surg in previous 4 weeks: No History of PE or DVT: No Hemoptysis: No Malignancy w/Treatment within 6 months or palliative: No Wells' PE Score total: 0 Wells' Criteria for DVT Active Cancer (Treatment within 6 months): No Bedridden recently >3 days or major surgery within 4 weeks: No Calf Swelling >3cm compared to other leg: No Collateral (nonvericose) superficial veins present: No Entire leg swollen: No Localized tenderness along the deep vein system: Yes Pitting edema, confined to symtomatic leg: No Paralysis, paresis, or recent plaster immobilization of ext: No Previously documented DVT: No Alternative dx to DVT as likely or more likely: No Wells' criteria for DVT: 1 Course Orders Ordered: ED Orders 10/22/18 18:49 XR chest 1V Stat EKG-12 Lead Stat 10/22/18 18:59 Complete Blood Count AUTO DIFF Stat Comprehensive Metabolic Panel Stat D Dimer Stat Lipase Stat Partial Thromboplastin Time Stat Prothrombin Time INR Stat Troponin & CK Cardiac Panel Stat 10/22/18 22:21 US periph venous low extrem lt Stat Vital Signs - 8 hr 10/22/18 18:42 10/22/18 19:00 10/22/18 19:30 Pulse Rate 74 67 62 Respiratory Rate 16 13 13 Blood Pressure 133/89 Blood Pressure [Left Arm] 113/79 114/69 Pulse Oximetry 100 99 98 10/22/18 23:43 Pulse Rate 65 Respiratory Rate 15 Blood Pressure 120/85 Blood Pressure [Left Arm] Pulse Oximetry 96 MDM - Chest Pain Lab Data Attestation: I reviewed the patient's lab results. Result diagrams: 10/22/18 18:59 10/22/18 18:59 Lab Results 10/22/18 10/22/18 10/22/18 Range/Units 18:59 18:59 18:59 WBC 9.1 (4.5-11.0) X10^3/uL RBC 4.45 (4.0-5.2) X10^6/uL Hgb 14.0 (12.0-16.0) g/dL Hct 40.8 (36-46) % MCV 91.7 (80-100) fL MCH 31.4 (26-34) PG MCHC 34.2 (30-36) % RDW 12.9 (11.6-14.8) % Plt Count 262 (150-400) X10^3/uL Neut % (Auto) 54.6 (50-75) % Lymph % (Auto) 35.9 (25-40) % [place] % (Auto) 7.2 (3-14) % Eos % (Auto) 1.9 L (2-4) % Baso % (Auto) 0.4 (0-2) % Neut # (Auto) 4900 (3594-7157) /uL Lymph # (Auto) 3300 (6245-3190) /uL [place] # (Auto) 700 (0-900) /uL Eos # (Auto) 200 (0-450) /uL Baso # (Auto) 0 (0-100) /uL PT 11.7 (10.1-12.7) SECONDS INR 1.0 (0.9-1.3) APTT 34 D (26.4-36.2) SECONDS D-Dimer (<230) ng/mL Sodium 138 (137-145) mmol/L Potassium 3.6 (3.4-5.1) mmol/L Chloride 100 (98-107) mmol/L Carbon Dioxide 30 (22-32) mmol/L BUN 17 (7-17) mg/dL Creatinine 0.70 (0.52-1.04) mg/dL Estimated GFR > 60.0 (>60) mL/min BUN/Creatinine Ratio 24.3 H (6-22) Glucose 97 (70-100) mg/dL Calcium 9.8 (8.4-10.2) mg/dL Total Bilirubin 0.4 (0.2-1.3) mg/dL AST 22 (14-36) IU/L ALT 14 (9-52) IU/L Alkaline Phosphatase 64 (38-126) U/L Total Creatine Kinase 80 (30-135) U/L CK-MB (CK-2) TNP CK-MB (CK-2) Rel Index TNP Troponin I < 0.012 (0.01-0.034) ng/mL Total Protein 7.3 (6.3-8.2) g/dL Albumin 4.4 (3.5-5.0) g/dL Globulin 2.9 (1.7-4.1) g/dL Albumin/Globulin Ratio 1.5 (1.0-2.8) Lipase 73 (23-300) U/L 10/22/18 Range/Units 18:59 WBC (4.5-11.0) X10^3/uL RBC (4.0-5.2) X10^6/uL Hgb (12.0-16.0) g/dL Hct (36-46) % MCV (80-100) fL MCH (26-34) PG MCHC (30-36) % RDW (11.6-14.8) % Plt Count (150-400) X10^3/uL Neut % (Auto) (50-75) % Lymph % (Auto) (25-40) % [place] % (Auto) (3-14) % Eos % (Auto) (2-4) % Baso % (Auto) (0-2) % Neut # (Auto) (4422-8255) /uL Lymph # (Auto) (6560-6921) /uL [place] # (Auto) (0-900) /uL Eos # (Auto) (0-450) /uL Baso # (Auto) (0-100) /uL PT (10.1-12.7) SECONDS INR (0.9-1.3) APTT (26.4-36.2) SECONDS D-Dimer < 200 (<230) ng/mL Sodium (137-145) mmol/L Potassium (3.4-5.1) mmol/L Chloride (98-107) mmol/L Carbon Dioxide (22-32) mmol/L BUN (7-17) mg/dL Creatinine (0.52-1.04) mg/dL Estimated GFR (>60) mL/min BUN/Creatinine Ratio (6-22) Glucose (70-100) mg/dL Calcium (8.4-10.2) mg/dL Total Bilirubin (0.2-1.3) mg/dL AST (14-36) IU/L ALT (9-52) IU/L Alkaline Phosphatase (38-126) U/L Total Creatine Kinase (30-135) U/L CK-MB (CK-2) CK-MB (CK-2) Rel Index Troponin I (0.01-0.034) ng/mL Total Protein (6.3-8.2) g/dL Albumin (3.5-5.0) g/dL Globulin (1.7-4.1) g/dL Albumin/Globulin Ratio (1.0-2.8) Lipase (23-300) U/L Point of Care Testing Test Results Negative Urine Dip Bedside Urine Glucose Negative Bedside Urine Bilirubin - Negative Bedside Urine Ketone - Negative Urine Specific [place] 1.010 Bedside Urine Occult Blood - Negative Bedside Urine pH 7.5 Bedside Urine Protein - Negative Bedside Urine Urobilinogen - Negative Bedside Urine Nitrite - Negative Bedside Urine Leukocytes - Negative Esterase Imaging Data Chest x-ray: Radiologist's impression: PROCEDURE: XR CHEST 1V INDICATIONS: chest pain TECHNIQUE: One view of the chest was acquired. COMPARISON: [facility], , XR CHEST 1V, 09/10/2018, 13:51. FINDINGS: Surgical changes and devices: None. Lungs and pleura: Lungs are clear. No pleural effusions or pneumothorax. Mediastinum: Mediastinal contours appear normal. Heart size is normal. Bones and chest wall: No suspicious bony lesions. Overlying soft tissues appear unremarkable. IMPRESSION: 1. No acute cardiopulmonary disease. Dictated by: Tenzin Khan M.D. on 10/22/2018 at 19:38 Venous US: Radiologist's impression: senior policy analyst report negative for DVT ECG Data Attestation: I personally reviewed and interpreted this ECG as follows: Prior ECG tracings: available for review Interpretation: Normal sinus rhythm rate [address] changes no T-wave inversions. MDM Narrative Medical decision making narrative: Patient is low risk risk factors estrogen and nicotine/tobacco for DVT D-dimer is negative. Patient states that pain radiates from left posterior knee to her upper and lower leg. Concerned is still because of flight upcoming to [place] in 3 days. Ultrasound ordered Ultrasound is negative for DVT. Patient feels ready and able to go home. Discharge Plan Departure Patient Disposition: Home Clinical Impression: Atypical chest pain Acute knee pain Qualifiers: Laterality: left Qualified Code(s): M25.562 - Pain in left knee Discharge Date/Time: 10/22/18 23:45 Interventions: ED Discharge Assessment Last Done: 10/22/18 23:43 Instructions: Deep Vein Thrombosis, DI for Atypical Chest Pain Activity Restrictions/Additional Instructions: *You have been diagnosed with atypical chest pain, knee pain *What to do: Knee pain may be due to a Ta cyst. Blood work is reassuring today. Low risk for blood clot. I recommended that he do calf exercises and is walking on airplane every few hours to help prevent blood clots. *Continue to take medications as directed *Follow up with your primary care provider in 2-3 days *Return to ER if you should have increasing chest pain, shortness of breath, leg swelling or pain or any new, worsening or concerning symptoms Prescriptions: No Action acetaminophen 500 mg Tablet 500 mg PO Q4H PRN (Reason: pain) Qty: 0 RF: 0 tizanidine 4 mg tablet 4 mg PO BID PRN (Reason: Muscle Spasm) RF: 0 estradiol 1 mg tablet 1 mg PO BEDTIME RF: 0 amitriptyline 10 mg tablet 10 mg PO BEDTIME RF: 0 fluticasone propionate 50 mcg/actuation spray,suspension 1 spray Intranasal PRN PRN (Reason: Allergy Symptoms) RF: 0 naproxen sodium [Aleve] 220 mg Tablet 220 mg PO BID PRN (Reason: pain) RF: 0 Referrals: [facility] [Provider Group]
[2018-10-22 21:56] LABS: D Dimer < 200 ng/mL (<230)
--- NOTE | 2018-10-22 22:21 | DI.US.S_ITS ---
PROCEDURE: US PERIPH VENOUS LOW EXTREM LT INDICATIONS: PAIN BEHIND KNEE TECHNIQUE: Real-time imaging, as well as color and pulse Doppler interrogation, were performed of the lower extremity deep veins from the inguinal ligament to the popliteal fossa. COMPARISON: None. FINDINGS: The common femoral, femoral and popliteal veins are normally compressible, and free of intraluminal thrombus. Color and pulse Doppler demonstrate normal phasic intraluminal flow. There is normal augmentation response to distal compression maneuver. IMPRESSION: No DVT in the left lower extremity. Dictated by: Becka Bob M.D. on 10/23/2018 at 9:22 Approved by: Becka Bob M.D. on 10/23/2018 at 9:22
[2018-10-22 23:43] VITALS: BP 120/85; PULSE 65; RESP 15; O2SAT 96
== END 2018-10-22 23:45 | disposition home or self-care (01) ==
PROVIDERS: Emergency Provider Emergency Medicine
DX: R07.89 Other chest pain (principal); M25.562 Pain in left knee
CPT/HCPCS: 36591; 71045; 80053; 81003; 81025; 82550; 83690; 84484; 85025; 85379; 85610; 85730; 93005; 93971; 99283; 99285

== ENCOUNTER 2018-11-21 08:08 | Emergency (ER) | payer OTHER, SELFPAY ==
[2018-11-21 08:10] VITALS: BP 140/90; PULSE 66; RESP 18; TEMP 36.8; O2SAT 100; BMI 21.2
--- NOTE | 2018-11-21 08:14 | DI.RAD.S_ITS ---
PROCEDURE: XR CHEST 1V INDICATIONS: chest pain TECHNIQUE: One view of the chest was acquired. COMPARISON: [facility], CR, XR CHEST 1V, 10/22/2018, 18:52. [facility], CR, XR CHEST 1V, 09/10/2018, 13:51. FINDINGS: Surgical changes and devices: None. Lungs and pleura: Lungs are clear. No pleural effusions or pneumothorax. Mediastinum: Mediastinal contours appear normal. Heart size is normal. Bones and chest wall: No suspicious bony lesions. Overlying soft tissues appear unremarkable. IMPRESSION: Normal for age, source of current chest pain symptoms is not seen. Dictated by: Clint Schafeer M.D. on 11/21/2018 at 8:54 Approved by: Clint Schaefer M.D. on 11/21/2018 at 8:57
[2018-11-21 08:25] LABS: Add Manual Diff / Slide Review NO; Basophils Absolute Auto 0 /uL (0-100); Basophils Percent Auto 0.6 % (0-2); Eosinophils Absolute Auto 100 /uL (0-450); Eosinophils Percent Auto 1.5 % (2-4); Hematocrit 42.6 % (36-46); Hemoglobin 14.5 g/dL (12.0-16.0); Lymphocytes Absolute Auto 2400 /uL (1100-4500); Mean Corpuscular HGB Conc 34.1 % (30-36); Mean Corpuscular Hemoglobin 31.3 PG (26-34); Mean Corpuscular Volume 91.7 fL (80-100); Monocytes Absolute Auto 400 /uL (0-900); Monocytes Percent Auto 6.5 % (3-14); Neutrophils Absolute Auto 3300 /uL (1500-7000); Neutrophils Percent Auto 52.4 % (50-75); Platelet Count 252 X10^3/uL (150-400); Red Blood Cell Count 4.64 X10^6/uL (4.0-5.2); Red Cell Distribution Width 12.5 % (11.6-14.8); White Blood Cell Count 6.3 X10^3/uL (4.5-11.0)
--- NOTE | 2018-11-21 08:25 | ED.CHESTPAIN ---
HPI - Chest Pain General Chief Complaint: Chest Pain Stated Complaint: chest pain Time Seen by Provider: 11/21/18 08:12 Source: patient and old records reviewed Mode of arrival: ambulatory Limitations: no limitations History of Present Illness HPI narrative: 38-year-old female comes to the emergency with complaint of chest pain. Patient states that it sort of on the left substernal but also the left breast and to the left the breast. Patient states that it has been on and off. She states she also sometimes short of breath. She also states she has been very anxious. She has been nauseated. Patient has not had any fevers. She has not had any vomiting. Patient states that she wakes up with this most mornings. She will try to go for to drive to calm her nerves but she still uncomfortable. She has trouble giving me a time frame for when the chest pain resolves but it is intermittent. Nothing seems to be clearly exacerbating other than anxiety. Nothing seems to make it better other than when she was taking amitriptyline she had less episodes. Patient denies any black or bloody stools but she has had some diarrhea for the last 24 hours about 4 times. No urinary symptoms, no vaginal bleeding or discharge. No swelling in her lower extremities. Patient states she does have a headache. She also feels like a warmth rashes over her from her head through her body with these episodes. She has a intermittent smoker, she does take estrogen and is post hysterectomy. She stopped her amitriptyline in order to do pulmonary function testing she has not had the final results but prior to testing was told by her solid waste technician they suspected asthma. The amitriptyline was for fibromyalgia. She states that it resolved her pain from her fibromyalgia although she has had discomfort between her shoulder blades for years. She takes tinazadine sometimes for jaw pain. She denies any other medical issues, no other surgeries besides or hysterectomy. Denies allergies to medications. Denies alcohol, denies illicit. Family history positive for asbestos in the father, and who had asthma another anti from ?hardening of the lungs?. No other known cardiac or embolic history. Related Data Home Medications Medication Instructions Recorded Confirmed acetaminophen 500 mg PO Q4H PRN #0 01/21/13 11/21/18 amitriptyline 10 mg PO BEDTIME 09/10/18 11/21/18 tizanidine 4 mg PO BID PRN 09/10/18 11/21/18 albuterol sulfate [ProAir HFA] 1 puff INHALATION PRN PRN 11/21/18 11/21/18 estradiol [Estrace] 1 mg PO DAILY 11/21/18 11/21/18 fluticasone propion-salmeterol 1 puff INHALATION BID 11/21/18 11/21/18 [Advair HFA] omeprazole 20 mg PO DAILY 11/21/18 11/21/18 Previous Rx's Medication Instructions Recorded ondansetron HCl [Zofran] 4 mg PO QID PRN #10 tab 11/21/18 Allergies Allergy/AdvReac Type Severity Reaction Status Date / Time hydrocodone Allergy Verified 11/21/18 08:21 Review of Systems Review of Systems ROS Unobtainable: All systems reviewed & are unremarkable except as noted in HPI and below Constitutional Denies chills, Denies fatigue, Denies fever(s), Denies lethargy and Denies weakness Cardiovascular Reports chest pain (Intermittent, no clear causes), Denies chest pain with activity, Denies diaphoresis, Denies syncope, Denies rapid heart rate, Denies edema, Denies irregular heart rhythm, Reports lightheadedness, Denies palpitations, Reports dyspnea, Denies dyspnea on exertion and Denies orthopnea Respiratory Denies change in phlegm color, Denies chest congestion, Denies cough, Denies hemoptysis, Denies pain on inspiration, Reports dyspnea, Denies dyspnea on exertion and Denies wheezing Gastrointestinal Gastrointestinal: Denies abdominal pain, Denies melena, Denies hematochezia, Denies change in bowel habits, Reports diarrhea (For time), Reports nausea and Denies vomiting Genitourinary Denies hematuria, Denies urinary frequency, Denies dysuria, Denies flank pain and Denies urinary urgency Musculoskeletal Reports back pain (Chronic discomfort between shoulder blades) and Reports other (Fibromyalgia) Integumentary/Breasts Reports pruritus and Reports rash (Itchy spot) Neurologic Denies syncope and Denies weakness Psychiatric Reports anxiety and Reports panic attacks Endocrine Denies fatigue and Denies palpitations Allergic/Immunologic Denies wheezing [facility] Medical History (Updated 11/21/18 @ 08:43 by Agatha Macedo DO) Fibromyalgia (Chronic) History of hysterectomy (Chronic) Family History (Updated 11/21/18 @ 08:37 by Agatha Macedo DO) Father Asbestosis Social History (Updated 11/21/18 @ 08:38 by Agatha Macedo DO) Smoking Status: Current some day smoker alcohol intake: never substance use type: does not use Social History (Updated 11/21/18 @ 08:38 by Agatha Macedo DO) Smoking Status: Current some day smoker alcohol intake: never substance use type: does not use Exam Narrative Exam Narrative: GENERAL: Alert and oriented x three, well-nourished, well-appearing female in mild distress. Patient appears a little bit tearful. HEENT: Head normocephalic, atraumatic, EOMI, pupils reactive, face symmetric, moist mucous membranes NECK: Supple, full range of motion CARDIOVASCULAR: Regular rate and rhythm without murmurs, rubs or gallops. No JVD. No swelling in lower extremities. Chest pain is slightly reproducible at the left sternal border. But not left of the breast. RESPIRATORY: Breath sounds equal bilaterally, no wheezes rales or rhonchi. No tachypnea, no accessory muscle use. ABDOMEN: Soft, nontender. Normoactive bowel sounds all 4 quadrants. No guarding or rebound, rigidity, no mass : No CVA tenderness EXTREMITIES: Normal range of motion, no clubbing or edema. Neurovascularly intact NEUROLOGICAL: Cranial nerves II through XII grossly intact. Moving all extremities. Normal gait. SKIN: Warm, dry, no petechiae, no rashes or lesions. Initial Vital Signs Initial Vital Signs: Vital Signs Temperature 98.2 F 11/21/18 08:10 Pulse Rate 66 11/21/18 08:10 Respiratory Rate 18 11/21/18 08:10 Blood Pressure 140/90 11/21/18 08:10 Pulse Oximetry 100 11/21/18 08:10 Scores HEART Score Heart Score history: Slightly Suspicious Heart Score EKG: Non-Specific repolarization disturbance Heart Score Age: < 45 years old Heart Score risk factors: No known risk factors PERC Score Age greater than or equal to 50 years: No Heart rate greater than or equal to 100 bpm: No Room Air O2 Sat less than 95%: No Unilateral leg swelling: No Recent trauma or surgery: No Hemoptysis: No Prior PE or DVT: No Hormone Use: Yes Total PERC Score: 1 Course Orders Ordered: Discontinued Medications Acetaminophen (Tylenol) 650 mg PO NOW ONE Stop: 11/21/18 10:22 Last Admin: 11/21/18 10:22 Dose: 650 mg Aspirin (Aspirin Chew) 324 mg PO NOW ONE Stop: 11/21/18 08:27 Last Admin: 11/21/18 08:33 Dose: 324 mg Sodium Chloride (Normal Saline 0.9%) 1,000 mls @ 1,000 mls/hr IV BOLUS ONE Stop: 11/21/18 09:25 Last Infusion: 11/21/18 09:27 Dose: 0 mls/hr Admin: 11/21/18 08:34 Dose: 1,000 mls/hr Ketorolac Tromethamine (Toradol) 30 mg IV NOW ONE Stop: 11/21/18 09:11 Last Admin: 11/21/18 09:12 Dose: 30 mg Ondansetron HCl (Zofran) 4 mg IV NOW ONE Stop: 11/21/18 09:11 Last Admin: 11/21/18 09:12 Dose: 4 mg Vital Signs - 8 hr 11/21/18 10:55 Pulse Rate 55 L Respiratory Rate 16 Blood Pressure 106/75 Pulse Oximetry 100 MDM - Chest Pain Lab Data Attestation: I reviewed the patient's lab results. Result diagrams: 11/21/18 08:10 11/21/18 08:10 Lab Results 11/21/18 11/21/18 11/21/18 Range/Units 08:10 08:10 08:10 WBC 6.3 (4.5-11.0) X10^3/uL RBC 4.64 (4.0-5.2) X10^6/uL Hgb 14.5 (12.0-16.0) g/dL Hct 42.6 (36-46) % MCV 91.7 (80-100) fL MCH 31.3 (26-34) PG MCHC 34.1 (30-36) % RDW 12.5 (11.6-14.8) % Plt Count 252 (150-400) X10^3/uL Neut % (Auto) 52.4 (50-75) % Lymph % (Auto) 39.0 (25-40) % Jerauld % (Auto) 6.5 (3-14) % Eos % (Auto) 1.5 L (2-4) % Baso % (Auto) 0.6 (0-2) % Neut # (Auto) 3300 (6953-7384) /uL Lymph # (Auto) 2400 (9342-6882) /uL Jerauld # (Auto) 400 (0-900) /uL Eos # (Auto) 100 (0-450) /uL Baso # (Auto) 0 (0-100) /uL PT 11.2 (10.1-12.7) SECONDS INR 1.0 (0.9-1.3) APTT 29 D (26.4-36.2) SECONDS D-Dimer (<230) ng/mL Sodium 140 (137-145) mmol/L Potassium 4.0 (3.4-5.1) mmol/L Chloride 101 (98-107) mmol/L Carbon Dioxide 31 (22-32) mmol/L BUN 12 (7-17) mg/dL Creatinine 0.70 (0.52-1.04) mg/dL Estimated GFR > 60.0 (>60) mL/min BUN/Creatinine Ratio 17.1 (6-22) Glucose 108 H (70-100) mg/dL Calcium 9.6 (8.4-10.2) mg/dL Total Bilirubin 0.6 (0.2-1.3) mg/dL AST 21 (14-36) IU/L ALT 16 (9-52) IU/L Alkaline Phosphatase 61 (38-126) U/L Total Creatine Kinase 51 (30-135) U/L CK-MB (CK-2) TNP CK-MB (CK-2) Rel Index TNP Troponin I < 0.012 (0.01-0.034) ng/mL Total Protein 7.5 (6.3-8.2) g/dL Albumin 4.4 (3.5-5.0) g/dL Globulin 3.1 (1.7-4.1) g/dL Albumin/Globulin Ratio 1.4 (1.0-2.8) Lipase 60 (23-300) U/L TSH (0.47-4.68) uIU/mL 11/21/18 11/21/18 Range/Units 08:10 09:10 WBC (4.5-11.0) X10^3/uL RBC (4.0-5.2) X10^6/uL Hgb (12.0-16.0) g/dL Hct (36-46) % MCV (80-100) fL MCH (26-34) PG MCHC (30-36) % RDW (11.6-14.8) % Plt Count (150-400) X10^3/uL Neut % (Auto) (50-75) % Lymph % (Auto) (25-40) % Jerauld % (Auto) (3-14) % Eos % (Auto) (2-4) % Baso % (Auto) (0-2) % Neut # (Auto) (1809-8818) /uL Lymph # (Auto) (1311-3413) /uL Jerauld # (Auto) (0-900) /uL Eos # (Auto) (0-450) /uL Baso # (Auto) (0-100) /uL PT Cancelled (10.1-12.7) SECONDS INR Cancelled (0.9-1.3) APTT (26.4-36.2) SECONDS D-Dimer < 200 (<230) ng/mL Sodium (137-145) mmol/L Potassium (3.4-5.1) mmol/L Chloride (98-107) mmol/L Carbon Dioxide (22-32) mmol/L BUN (7-17) mg/dL Creatinine (0.52-1.04) mg/dL Estimated GFR (>60) mL/min BUN/Creatinine Ratio (6-22) Glucose (70-100) mg/dL Calcium (8.4-10.2) mg/dL Total Bilirubin (0.2-1.3) mg/dL AST (14-36) IU/L ALT (9-52) IU/L Alkaline Phosphatase (38-126) U/L Total Creatine Kinase (30-135) U/L CK-MB (CK-2) CK-MB (CK-2) Rel Index Troponin I (0.01-0.034) ng/mL Total Protein (6.3-8.2) g/dL Albumin (3.5-5.0) g/dL Globulin (1.7-4.1) g/dL Albumin/Globulin Ratio (1.0-2.8) Lipase (23-300) U/L TSH 1.44 (0.47-4.68) uIU/mL Imaging Data Chest x-ray: Attestation: I personally reviewed and interpreted this imaging study as follows: My impression: No acute process, no pneumothorax, no pneumonia, no fractures. Normal mediastinum. Radiologist's impression: [address] [address] XRay Report Signed Patient: Jeniffer Hartley RMR#: [id number] : 1980Acct:[id number] Age/Sex: 38 / FDate of Service: 11/21/18 Loc: ED Accession Number: [id number] Procedure: XR chest 1V Ordering Provider: Agatha Macedo D.O. PROCEDURE: XR CHEST 1V INDICATIONS: chest pain TECHNIQUE: One view of the chest was acquired. COMPARISON: [facility], CR, XR CHEST 1V, 10/22/2018, 18:52. [facility], CR, XR CHEST 1V, 09/10/2018, 13:51. FINDINGS: Surgical changes and devices: None. Lungs and pleura: Lungs are clear. No pleural effusions or pneumothorax. Mediastinum: Mediastinal contours appear normal. Heart size is normal. Bones and chest wall: No suspicious bony lesions. Overlying soft tissues appear unremarkable. IMPRESSION: Normal for age, source of current chest pain symptoms is not seen. Dictated by: Clint Schaefer M.D. on 11/21/2018 at 8:54 Approved by: Clint Schaefer M.D. on 11/21/2018 at 8:57 ECG Data Attestation: I personally reviewed and interpreted this ECG as follows: Prior ECG tracings: available for review Interpretation: Sinus rhythm/sinus arrhythmia, rate of 66 P are 126 QRS 86 and QTC of 396. No ST elevation or depression appreciated. Nonspecific change. Q-wave in 1 and aVL which is present on prior EKG from 09/10/2018 MDM Narrative Medical decision making narrative: Patient comes in with complaint of chest pain and shortness of breath but they are not always concurrent. She is also having nausea. Her symptoms sound somewhat like panic attacks, she does not have a significant family history for cardiac symptoms or folic symptoms. Lungs are clear so suspicion for pulmonary cause is low. Chest x-ray showed no acute process. By patient's own description it seems to be worse when she is more anxious. And stopping her amitriptyline which she was taking for fibromyalgia made it worse as well. Patient PFT results are not available to myself. Lab work shows no acute changes. Chest xray is negative. EKG has q wave but not acute changes from prior. Records reviewed from [place] [facility] visit. Patient was started on omeprazole and encouraged to continue lorazepam as needed. She has restarted her amitriptyline and has had 2 doses since she had her PFT testing. Patient does have some risk for PE with intermittent tobacco use an estrogen. She has had several negative D-dimers but no CT scanning. Including here as well as at [place] [facility]. My suspicion for pulmonary embolism based on her symptoms is low but I did share decision making with patient regarding risk versus benefit with the patient and she elects to not do CT scanning. Will try zofran and Toradol, after long discussion she states she was maybe told she was hyperthyroid a long time ago. and TSH added on. PFT testing was done because of the symptoms. She was also encouraged to start Lexapro by her primary care which she has not. TSH is in the normal range. Patient was offered some Tylenol which accepted. She did request a script for some Zofran for the nausea. She will follow up with her primary care. Discharge Plan Departure Patient Disposition: Home Clinical Impression: Atypical chest pain Discharge Date/Time: 11/21/18 10:55 Interventions: ED Discharge Assessment Last Done: 11/21/18 10:55 Instructions: DI for Atypical Chest Pain Activity Restrictions/Additional Instructions: Call set up follow-up with your primary care physician. Call today to set up the appointment. I would also recommend following up with your solid waste technician regarding your PFT results Continue home medications including amitriptyline as prescribed. I would recommend starting your lexapro. You may take Zofran every 6 hours as needed for nausea. Return to the emergency department for fevers greater than 100.4 F, new or worsening symptoms, passing out, persistent vomiting, black or bloody stools, sudden severe abdominal pain, worsening shortness of breath or other new or concerning symptoms. Prescriptions: New ondansetron HCl [Zofran] 4 mg tablet 4 mg PO QID PRN (Reason: nausea and vomiting) Qty: 10 RF: 0 No Action acetaminophen 500 mg Tablet 500 mg PO Q4H PRN (Reason: pain) Qty: 0 RF: 0 tizanidine 4 mg tablet 4 mg PO BID PRN (Reason: Muscle Spasm) RF: 0 amitriptyline 10 mg tablet 10 mg PO BEDTIME RF: 0 estradiol [Estrace] 1 mg tablet 1 mg PO DAILY RF: 0 omeprazole 20 mg capsule,delayed release(DR/EC) 20 mg PO DAILY RF: 0 albuterol sulfate [ProAir HFA] 90 mcg/actuation HFA aerosol inhaler 1 puff inhalation PRN PRN (Reason: Shortness Of Breath) RF: 0 Advair HFA 230-21 mcg/actuation HFA aerosol inhaler 1 puff inhalation BID RF: 0 Referrals: Julee Gerber MD [Primary Care Provider] -
--- NOTE | 2018-11-21 08:28 | PC.NURSE ---
Pt seen mult times for same. Seen Monday at [facility]. Records requested. States anxiety and allergies recent diagnosis
[2018-11-21 08:32] LABS: Prothrombin Time 11.2 SECONDS (10.1-12.7)
[2018-11-21] MEDS: ASPIRIN 81 MG TAB 324 MG PO (08:33)
[2018-11-21] MEDS: SODIUM CHLORIDE 0.9% 1,000 ML 1000 ML IV (08:34)
[2018-11-21 08:35] LABS: PTT Partial Thromboplastin Tim 29 SECONDS (26.4-36.2)
[2018-11-21 08:40] LABS: Alanine Aminotransferase 16 IU/L (9-52); Albumin 4.4 g/dL (3.5-5.0); Albumin Globulin Ratio 1.4 (1.0-2.8); Alkaline Phosphatase 61 U/L (38-126); Aspartate Aminotransferase 21 IU/L (14-36); BUN Creatinine Ratio 17.1 (6-22); Bilirubin Total 0.6 mg/dL (0.2-1.3); Blood Urea Nitrogen 12 mg/dL (7-17); Calcium 9.6 mg/dL (8.4-10.2); Carbon Dioxide 31 mmol/L (22-32); Chloride 101 mmol/L (98-107); Creatine Kinase 51 U/L (30-135); Estimated Glomerular Filt Rate > 60.0 mL/min (>60); Globulin 3.1 g/dL (1.7-4.1); Glucose 108 mg/dL (70-100); HEMOLYSIS < 15 (0-50); Lipase 60 U/L (23-300); Sodium 140 mmol/L (137-145); Total Protein 7.5 g/dL (6.3-8.2)
--- NOTE | 2018-11-21 08:44 | ED_ITS ---
HPI - Chest Pain General Chief Complaint: Chest Pain Stated Complaint: chest pain Time Seen by Provider: 11/21/18 08:12 Source: patient and old records reviewed Mode of arrival: ambulatory Limitations: no limitations History of Present Illness HPI narrative: 38-year-old female comes to the emergency with complaint of chest pain. Patient states that it sort of on the left substernal but also the left breast and to the left the breast. Patient states that it has been on and off. She states she also sometimes short of breath. She also states she has been very anxious. She has been nauseated. Patient has not had any fevers. She has not had any vomiting. Patient states that she wakes up with this most mornings. She will try to go for to drive to calm her nerves but she still uncomfortable. She has trouble giving me a time frame for when the chest pain resolves but it is intermittent. Nothing seems to be clearly exacerbating other than anxiety. Nothing seems to make it better other than when she was taking amitriptyline she had less episodes. Patient denies any black or bloody stools but she has had some diarrhea for the last 24 hours about 4 times. No urinary symptoms, no vaginal bleeding or discharge. No swelling in her lower extremities. Patient states she does have a headache. She also feels like a warmth rashes over her from her head through her body with these episodes. She has a intermittent smoker, she does take estrogen and is post hysterectomy. She stopped her amitriptyline in order to do pulmonary function testing she has not had the final results but prior to testing was told by her elementary education tutor they suspected asthma. The amitriptyline was for fibromyalgia. She states that it resolved her pain from her fibromyalgia although she has had discomfort between her shoulder blades for years. She takes tinazadine sometimes for jaw pain. She denies any other medical issues, no other surgeries besides or hysterectomy. Denies allergies to medications. Denies alcohol, denies illicit. Family history positive for asbestos in the father, and who had asthma another anti from ?hardening of the lungs?. No other known cardiac or embolic history. Related Data Home Medications Medication Instructions Recorded Confirmed acetaminophen 500 mg PO Q4H PRN #0 01/21/13 11/21/18 amitriptyline 10 mg PO BEDTIME 09/10/18 11/21/18 tizanidine 4 mg PO BID PRN 09/10/18 11/21/18 albuterol sulfate [ProAir HFA] 1 puff INHALATION PRN PRN 11/21/18 11/21/18 estradiol [Estrace] 1 mg PO DAILY 11/21/18 11/21/18 fluticasone propion-salmeterol 1 puff INHALATION BID 11/21/18 11/21/18 [Advair HFA] omeprazole 20 mg PO DAILY 11/21/18 11/21/18 Previous Rx's Medication Instructions Recorded ondansetron HCl [Zofran] 4 mg PO QID PRN #10 tab 11/21/18 Allergies Allergy/AdvReac Type Severity Reaction Status Date / Time hydrocodone Allergy Verified 11/21/18 08:21 Review of Systems Review of Systems ROS Unobtainable: All systems reviewed & are unremarkable except as noted in HPI and below Constitutional Denies chills, Denies fatigue, Denies fever(s), Denies lethargy and Denies weakness Cardiovascular Reports chest pain (Intermittent, no clear causes), Denies chest pain with activity, Denies diaphoresis, Denies syncope, Denies rapid heart rate, Denies edema, Denies irregular heart rhythm, Reports lightheadedness, Denies palpitations, Reports dyspnea, Denies dyspnea on exertion and Denies orthopnea Respiratory Denies change in phlegm color, Denies chest congestion, Denies cough, Denies hemoptysis, Denies pain on inspiration, Reports dyspnea, Denies dyspnea on exertion and Denies wheezing Gastrointestinal Gastrointestinal: Denies abdominal pain, Denies melena, Denies hematochezia, Denies change in bowel habits, Reports diarrhea (For time), Reports nausea and Denies vomiting Genitourinary Denies hematuria, Denies urinary frequency, Denies dysuria, Denies flank pain and Denies urinary urgency Musculoskeletal Reports back pain (Chronic discomfort between shoulder blades) and Reports other (Fibromyalgia) Integumentary/Breasts Reports pruritus and Reports rash (Itchy spot) Neurologic Denies syncope and Denies weakness Psychiatric Reports anxiety and Reports panic attacks Endocrine Denies fatigue and Denies palpitations Allergic/Immunologic Denies wheezing [facility] Medical History (Updated 11/21/18 @ 08:43 by Agatha Macedo DO) Fibromyalgia (Chronic) History of hysterectomy (Chronic) Family History (Updated 11/21/18 @ 08:37 by Agatha Macedo DO) Father Asbestosis Social History (Updated 11/21/18 @ 08:38 by Agatha Macedo DO) Smoking Status: Current some day smoker alcohol intake: never substance use type: does not use Social History (Updated 11/21/18 @ 08:38 by Agatha Macedo DO) Smoking Status: Current some day smoker alcohol intake: never substance use type: does not use Exam Narrative Exam Narrative: GENERAL: Alert and oriented x three, well-nourished, well- appearing female in mild distress. Patient appears a little bit tearful. HEENT: Head normocephalic, atraumatic, EOMI, pupils reactive, face symmetric, moist mucous membranes NECK: Supple, full range of motion CARDIOVASCULAR: Regular rate and rhythm without murmurs, rubs or gallops. No JVD. No swelling in lower extremities. Chest pain is slightly reproducible at the left sternal border. But not left of the breast. RESPIRATORY: Breath sounds equal bilaterally, no wheezes rales or rhonchi. No tachypnea, no accessory muscle use. ABDOMEN: Soft, nontender. Normoactive bowel sounds all 4 quadrants. No guarding or rebound, rigidity, no mass : No CVA tenderness EXTREMITIES: Normal range of motion, no clubbing or edema. Neurovascularly intact NEUROLOGICAL: Cranial nerves II through XII grossly intact. Moving all extremities. Normal gait. SKIN: Warm, dry, no petechiae, no rashes or lesions. Initial Vital Signs Initial Vital Signs: Vital Signs Temperature 98.2 F 11/21/18 08:10 Pulse Rate 66 11/21/18 08:10 Respiratory Rate 18 11/21/18 08:10 Blood Pressure 140/90 11/21/18 08:10 Pulse Oximetry 100 11/21/18 08:10 Scores HEART Score Heart Score history: Slightly Suspicious Heart Score EKG: Non-Specific repolarization disturbance Heart Score Age: < 45 years old Heart Score risk factors: No known risk factors PERC Score Age greater than or equal to 50 years: No Heart rate greater than or equal to 100 bpm: No Room Air O2 Sat less than 95%: No Unilateral leg swelling: No Recent trauma or surgery: No Hemoptysis: No Prior PE or DVT: No Hormone Use: Yes Total PERC Score: 1 Course Orders Ordered: Discontinued Medications Acetaminophen (Tylenol) 650 mg PO NOW ONE Stop: 11/21/18 10:22 Last Admin: 11/21/18 10:22 Dose: 650 mg Aspirin (Aspirin Chew) 324 mg PO NOW ONE Stop: 11/21/18 08:27 Last Admin: 11/21/18 08:33 Dose: 324 mg Sodium Chloride (Normal Saline 0.9%) 1,000 mls @ 1,000 mls/hr IV BOLUS ONE Stop: 11/21/18 09:25 Last Infusion: 11/21/18 09:27 Dose: 0 mls/hr Admin: 11/21/18 08:34 Dose: 1,000 mls/hr Ketorolac Tromethamine (Toradol) 30 mg IV NOW ONE Stop: 11/21/18 09:11 Last Admin: 11/21/18 09:12 Dose: 30 mg Ondansetron HCl (Zofran) 4 mg IV NOW ONE Stop: 11/21/18 09:11 Last Admin: 11/21/18 09:12 Dose: 4 mg Vital Signs - 8 hr 11/21/18 10:55 Pulse Rate 55 L Respiratory Rate 16 Blood Pressure 106/75 Pulse Oximetry 100 MDM - Chest Pain Lab Data Attestation: I reviewed the patient's lab results. Result diagrams: 11/21/18 08:10 11/21/18 08:10 Lab Results 11/21/18 11/21/18 11/21/18 Range/Units 08:10 08:10 08:10 WBC 6.3 (4.5-11.0) X10^3/uL RBC 4.64 (4.0-5.2) X10^6/uL Hgb 14.5 (12.0-16.0) g/dL Hct 42.6 (36-46) % MCV 91.7 (80-100) fL MCH 31.3 (26-34) PG MCHC 34.1 (30-36) % RDW 12.5 (11.6-14.8) % Plt Count 252 (150-400) X10^3/uL Neut % (Auto) 52.4 (50-75) % Lymph % (Auto) 39.0 (25-40) % [place] % (Auto) 6.5 (3-14) % Eos % (Auto) 1.5 L (2-4) % Baso % (Auto) 0.6 (0-2) % Neut # (Auto) 3300 (1363-9600) /uL Lymph # (Auto) 2400 (1268-6376) /uL [place] # (Auto) 400 (0-900) /uL Eos # (Auto) 100 (0-450) /uL Baso # (Auto) 0 (0-100) /uL PT 11.2 (10.1-12.7) SECONDS INR 1.0 (0.9-1.3) APTT 29 D (26.4-36.2) SECONDS D-Dimer (<230) ng/mL Sodium 140 (137-145) mmol/L Potassium 4.0 (3.4-5.1) mmol/L Chloride 101 (98-107) mmol/L Carbon Dioxide 31 (22-32) mmol/L BUN 12 (7-17) mg/dL Creatinine 0.70 (0.52-1.04) mg/dL Estimated GFR > 60.0 (>60) mL/min BUN/Creatinine Ratio 17.1 (6-22) Glucose 108 H (70-100) mg/dL Calcium 9.6 (8.4-10.2) mg/dL Total Bilirubin 0.6 (0.2-1.3) mg/dL AST 21 (14-36) IU/L ALT 16 (9-52) IU/L Alkaline Phosphatase 61 (38-126) U/L Total Creatine Kinase 51 (30-135) U/L CK-MB (CK-2) TNP CK-MB (CK-2) Rel Index TNP Troponin I < 0.012 (0.01-0.034) ng/mL Total Protein 7.5 (6.3-8.2) g/dL Albumin 4.4 (3.5-5.0) g/dL Globulin 3.1 (1.7-4.1) g/dL Albumin/Globulin Ratio 1.4 (1.0-2.8) Lipase 60 (23-300) U/L TSH (0.47-4.68) uIU/mL 11/21/18 11/21/18 Range/Units 08:10 09:10 WBC (4.5-11.0) X10^3/uL RBC (4.0-5.2) X10^6/uL Hgb (12.0-16.0) g/dL Hct (36-46) % MCV (80-100) fL MCH (26-34) PG MCHC (30-36) % RDW (11.6-14.8) % Plt Count (150-400) X10^3/uL Neut % (Auto) (50-75) % Lymph % (Auto) (25-40) % [place] % (Auto) (3-14) % Eos % (Auto) (2-4) % Baso % (Auto) (0-2) % Neut # (Auto) (7057-6692) /uL Lymph # (Auto) (0007-2658) /uL [place] # (Auto) (0-900) /uL Eos # (Auto) (0-450) /uL Baso # (Auto) (0-100) /uL PT Cancelled (10.1-12.7) SECONDS INR Cancelled (0.9-1.3) APTT (26.4-36.2) SECONDS D-Dimer < 200 (<230) ng/mL Sodium (137-145) mmol/L Potassium (3.4-5.1) mmol/L Chloride (98-107) mmol/L Carbon Dioxide (22-32) mmol/L BUN (7-17) mg/dL Creatinine (0.52-1.04) mg/dL Estimated GFR (>60) mL/min BUN/Creatinine Ratio (6-22) Glucose (70-100) mg/dL Calcium (8.4-10.2) mg/dL Total Bilirubin (0.2-1.3) mg/dL AST (14-36) IU/L ALT (9-52) IU/L Alkaline Phosphatase (38-126) U/L Total Creatine Kinase (30-135) U/L CK-MB (CK-2) CK-MB (CK-2) Rel Index Troponin I (0.01-0.034) ng/mL Total Protein (6.3-8.2) g/dL Albumin (3.5-5.0) g/dL Globulin (1.7-4.1) g/dL Albumin/Globulin Ratio (1.0-2.8) Lipase (23-300) U/L TSH 1.44 (0.47-4.68) uIU/mL Imaging Data Chest x-ray: Attestation: I personally reviewed and interpreted this imaging study as follows: My impression: No acute process, no pneumothorax, no pneumonia, no fractures. Normal mediastinum. Radiologist's impression: [address] [address] XRay Report Signed Patient: Jeniffer Hartley RMR#: [id number] : 1980Acct:[id number] Age/Sex: 38 / FDate of Service: 11/21/18 Loc: ED Accession Number: [id number] Procedure: XR chest 1V Ordering Provider: Agatha Macedo D.O. PROCEDURE: XR CHEST 1V INDICATIONS: chest pain TECHNIQUE: One view of the chest was acquired. COMPARISON: [facility], CR, XR CHEST 1V, 10/22/2018, 18:52. [facility], CR, XR CHEST 1V, 09/10/2018, 13:51. FINDINGS: Surgical changes and devices: None. Lungs and pleura: Lungs are clear. No pleural effusions or pneumothorax. Mediastinum: Mediastinal contours appear normal. Heart size is normal. Bones and chest wall: No suspicious bony lesions. Overlying soft tissues appear unremarkable. IMPRESSION: Normal for age, source of current chest pain symptoms is not seen. Dictated by: Clint Schaefer M.D. on 11/21/2018 at 8:54 Approved by: Clint Schaefer M.D. on 11/21/2018 at 8:57 ECG Data Attestation: I personally reviewed and interpreted this ECG as follows: Prior ECG tracings: available for review Interpretation: Sinus rhythm/sinus arrhythmia, rate of 66 P are 126 QRS 86 and QTC of 396. No ST elevation or depression appreciated. Nonspecific change. Q- wave in 1 and aVL which is present on prior EKG from 09/10/2018 MDM Narrative Medical decision making narrative: Patient comes in with complaint of chest pain and shortness of breath but they are not always concurrent. She is also having nausea. Her symptoms sound somewhat like panic attacks, she does not have a significant family history for cardiac symptoms or folic symptoms. Lungs are clear so suspicion for pulmonary cause is low. Chest x-ray showed no acute process. By patient's own description it seems to be worse when she is more anxious. And stopping her amitriptyline which she was taking for fibromyalgia made it worse as well. Patient PFT results are not available to myself. Lab work shows no acute changes. Chest xray is negative. EKG has q wave but not acute changes from prior. Records reviewed from [facility] visit. Patient was started on omeprazole and encouraged to continue lorazepam as needed. She has restarted her amitriptyline and has had 2 doses since she had her PFT testing. Patient does have some risk for PE with intermittent tobacco use an estrogen. She has had several negative D-dimers but no CT scanning. Including here as well as at [facility]. My suspicion for pulmonary embolism based on her symptoms is low but I did share decision making with patient regarding risk versus benefit with the patient and she elects to not do CT scanning. Will try zofran and Toradol, after long discussion she states she was maybe told she was hyperthyroid a long time ago. and TSH added on. PFT testing was done because of the symptoms. She was also encouraged to start Lexapro by her primary care which she has not. TSH is in the normal range. Patient was offered some Tylenol which accepted. She did request a script for some Zofran for the rust ea. She will follow up with her primary care. Discharge Plan Departure Patient Disposition: Home Clinical Impression: Atypical chest pain Discharge Date/Time: 11/21/18 10:55 Interventions: ED Discharge Assessment Last Done: 11/21/18 10:55 Instructions: DI for Atypical Chest Pain Activity Restrictions/Additional Instructions: Call set up follow-up with your primary care physician. Call today to set up the appointment. I would also recommend following up with your elementary education tutor regarding your PFT results Continue home medications including amitriptyline as prescribed. I would recommend starting your lexapro. You may take Zofran every 6 hours as needed for nausea. Return to the emergency department for fevers greater than 100.4 F, new or worsening symptoms, passing out, persistent vomiting, black or bloody stools, sudden severe abdominal pain, worsening shortness of breath or other new or concerning symptoms. Prescriptions: New ondansetron HCl [Zofran] 4 mg tablet 4 mg PO QID PRN (Reason: nausea and vomiting) Qty: 10 RF: 0 No Action acetaminophen 500 mg Tablet 500 mg PO Q4H PRN (Reason: pain) Qty: 0 RF: 0 tizanidine 4 mg tablet 4 mg PO BID PRN (Reason: Muscle Spasm) RF: 0 amitriptyline 10 mg tablet 10 mg PO BEDTIME RF: 0 estradiol [Estrace] 1 mg tablet 1 mg PO DAILY RF: 0 omeprazole 20 mg capsule,delayed release(DR/EC) 20 mg PO DAILY RF: 0 albuterol sulfate [ProAir HFA] 90 mcg/actuation HFA aerosol inhaler 1 puff inhalation PRN PRN (Reason: Shortness Of Breath) RF: 0 Advair HFA 230-21 mcg/actuation HFA aerosol inhaler 1 puff inhalation BID RF: 0 Referrals: Julee Gerber MD [Primary Care Provider] -
[2018-11-21 08:51] LABS: Troponin I < 0.012 ng/mL (0.01-0.034)
[2018-11-21 08:53] LABS: D Dimer < 200 ng/mL (<230)
[2018-11-21 09:00] VITALS: BP 109/72; PULSE 44; RESP 12; O2SAT 97
[2018-11-21] MEDS: KETOROLAC 60 MG/2 ML VIAL 30 MG IV (09:12)
[2018-11-21] MEDS: ONDANSETRON 4 MG/2 ML INJ IV (09:12)
[2018-11-21 09:58] LABS: Thyroid Stimulating Hormone 1.44 uIU/mL (0.47-4.68)
[2018-11-21 10:00] VITALS: BP 114/72; PULSE 54; RESP 12; O2SAT 13
[2018-11-21] MEDS: ACETAMINOPHEN 325 MG TABLET 650 MG PO (10:22)
[2018-11-21 10:55] VITALS: BP 106/75; PULSE 55; RESP 16; O2SAT 100
== END 2018-11-21 10:55 | disposition home or self-care (01) ==
PROVIDERS: Emergency Provider Emergency Medicine; PCP Family Medicine
DX: R07.89 Other chest pain (principal)
CPT/HCPCS: 36591; 71045; 80053; 82550; 83690; 84443; 84484; 85025; 85379; 85610; 85730; 93005; 96361; 96374; 96375; 99283; 99285; J1885; J2405

== ENCOUNTER 2018-12-11 16:30 | Outpatient (RCR) | payer OTHER, SELFPAY ==
--- NOTE | 2018-12-05 16:53 | ST.OPIE ---
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 The pt complains of stiffness and painful neck muscles when she talks. She also complains of shortness of breath if she talks for any length of time. Jeniffer reported a history of anxiety as well as GERD. She also vaguely mentioned that she has other emotional issues she is dealing with. Previous Therapy Previous Speech-Language Therapy No Oral Motor Assessment Source: [employer] ([facility]). Oral-Motor Eval Completed Yes: WNL Subjective Subjective Pt was pleasant, but was a little anxious. She reported a history of anxiety. - Laryngeal Performance S/Z Ratio S/Z Ratio .97 Functional for Speech Yes Reduced Laryngeal Function Relative to No Respiration Voice Handicap Index Function Subtotal 0 Physical Subtotal 0 Emotional Subtotal 0 Total Score 0 Severity Mild (0-30) VHI Comments I don't have a voice problem per Pt. Maximum Phonation Time MPT Norms: Women (15-25) Men (25-35) Loudness (50-60 dB); Speaking Rate: Oral Reading of Sentences (190 Words Per Minute); Oral Reading of Paragraphs (160-170 WPM); Speaking Rate in Conversation (150-250 WPM) Maximum Phonation Time 27.4s Maximum Phonation Time Adequate for Speech Maximum Phonation Time Comments Vocal quality is good. Minimal pitch or loudness variability Jitter/Shimmer Norms: Jitter (Less than or equal to 1.040% - Frequency) Norms: Shimmer (Less than or equal to 3.810% - Amplitude) Jitter WNL Shimmer WNL Pitch Helena Pitch Helena WNL Muscle Tension Assessment Muscle Tension Assessment Jaw Neck Shoulders Muscle Tension Assessment Comments pt reported increased tension in her shoulders, neck and jaw when she spoke Tenderness with Palpation/Massage Yes Bilateral Tongue Base Tension Tongue Base Tension w/ Voicing not observable Tongue Base Tension at Rest not observable Breath Support Breath Support At Rest Mixed Breath Support At Rest Comments As pt continued to speak and her anxiety increased -> thoracic breathing Breath Support Sustained Phonation Abdominal Breath Support Conversation Mixed Speaks on Room Air Yes Postural Alignment Stance Slumped Left Leaning Neck Static Shoulders Right Higher Than Left Voice Pitch Range Norms: Women (100-300 Hz) Men (70-250 Hz) Fundamental Frequency Norms: Women (Mean: 225 Hz; Range: 155-334 Hz) Men ( Mean: 128 Hz; Range: 85-196 Hz) Voice Pitch Normal Voice Loudness Normal Voice Phonatory-based Quality Normal Fundamental Frequency 226Hz Intensity 65dB Paradoxical Vocal Fold Movement No: not observed Indications Resonance Nasal Resonance Normal Oral Resonance Normal Other Observations Throat Clearing Therapeutic Techniques Therapy Tactics Breath Support Other Tactics Tone focus Relaxation/Meditation/ Mindfulness Increased consistency with Omneprizol as per prescription instructions Voice/Resonance Assessment Assessment Lizabeth presented with normal vocal quality, stating I don't have a voice problem, I just get tight and painful in my neck area. She completed the Voice Handicap Index with a score of zero. her vocal parameters as measured were determined to be WNL. She also completed the Voice [facility] PVFM Clinical worksheet that is designed to differentiate between 5 potential causes of PVFM: Laryngopharyngeal reflux ; Respiratory-type laryngeal dystonia; Asthma associated and hyper-immune laryngeal dysfunction; brainstem abnormalities; and drug- induced laryngeal dystonic reactions. Jeniffer's overall score indicated the highest number of symptoms reported were related to laryngopharyngeal reflux. Jeniffer also completed the [facility] Reflux Symptom Index. Her overall score indicated significant reflux disease. Jeniffer Hartley presented with a normal vocal quality as indicated by her vocal assessment values and her Voice Handicap Index. She also presents with a significant history for GERD and presumably laryngopharyngeal reflux (LPR) , which results in pain and tension in her shoulder, neck and jaw muscles when she speaks for an extended length of time. She was encouraged to take her omneprizol as her doctor had prescribed. Additionally, she was encouraged to speak to her physician about her anxiety. It is possible that her anxiety increases acid production, which then increases GERD/LPR symptomology leading to irritation of the vocal folds, throat tightness and pain when she speaks. Jeniffer's breathing pattern is mixed to thoracic in its pattern, which may produce the sensation of shortness of breath. Trial abdominal breathing was introduced and practiced as a method of 1) increasing breathing efficiency as well s assisting with overall relaxation. Prognosis Rehabilitation Potential Good - Recommendations Treatment Recommended Yes Treatment Frequency/Duration 1x/week Short Term Goals 1) Pt instruction in abdominal breathing to increase efficiency of breath support for speaking. 2) Tone-focus for increasing awareness of resonating areas within the vocal tract to further increase breathing and vocal efficiency. This will also reduce the tension in the vocal folds as well as the supporting neck, shoulder and jaw muscles. Massage therapy is also recommended Assisted Goals reduce pain and tension in the neck, shoulders and jaw areas when speaking. Referrals Referrals GI Patient/Caregiver Education Patient/Family Education Described results of evaluation Patient Understanding Patient Demonstration
--- NOTE | 2018-12-11 17:32 | ST.OPDS ---
Care Team Visit Care Team Role Provider Type Julee Gerber MD Primary Care Provider Non-Staff Address: [address] [place] [address], [id number] Jonn Hancock MD Attending Provider Physician Address: [address] [place] [address], [id number] COAT ROOM ATTENDANT Treatment Note COAT ROOM ATTENDANT Treatment Note Start: 12/05/18 16:01 Freq: Status: Active Protocol: Document 12/11/18 17:21 LNK (Rec: 12/11/18 17:31 LNK [id number]) Speech Pathology Treatment Note Session Time Visit Start Time 16:30 Visit Stop Time 16:50 Total Visit Minutes 20 Visit Information Visit Number 2 Plan of Care Dates 12/04/18-03/06/19 Setting Treatment Setting Outpatient Care Visit Type Note Type Discharge Summary General Information General Information severiano Hartley was seen for an evaluation for laryngospam on 12/04/18 at the referral of Dr Hancock, ENT. The pt complains of stiffness and painful neck muscles when she talks. She also complains of shortness of breath if she talks for any length of time. Jeniffer reported a history of anxiety as well as GERD. She presented with normal vocal quality, stating I don't have a voice problem, I just get tight and painful in my neck area. She completed the Voice Handicap Index with a score of zero. her vocal parameters as measured were determined to be WNL. She also completed the [facility] [place] [facility] PVFM Clinical worksheet that is designed to differentiate between 5 potential causes of PVFM: Laryngopharyngeal reflux ; Respiratory-type laryngeal dystonia; Asthma associated and hyper-immune laryngeal dysfunction; brainstem abnormalities; and drug- induced laryngeal dystonic reactions. Jeniffer's overall score indicated the highest number of symptoms reported were related to laryngopharyngeal reflux. Jeniffer also completed the [facility] for [facility] Reflux Symptom Index. Her overall score indicated significant reflux disease. Jeniffer Hartley presented with a normal vocal quality as indicated by her vocal assessment values and her Voice Handicap Index. She also presents with a significant history for GERD and presumably laryngopharyngeal reflux (LPR) , which results in pain and tension in her shoulder, neck and jaw muscles when she speaks for an extended length of time. She was encouraged to take her omneprizol as her doctor had prescribed. Additionally, she was encouraged to speak to her physician about her anxiety. It is possible that her anxiety increases acid production, which then increases GERD/LPR symptomology leading to irritation of the vocal folds, throat tightness and pain when she speaks. Jeniffer's breathing atternis mixed to thoracic in its pattern, which may produce the sensation of shortness of breath. Trial abdominal breathing was introduced and practiced as a method of 1) increasing breathing efficiency as well as assisting with overall relaxation. Subjective Identification Type Name Identification Reconciled With Intake Sheet Observations/Patient Presentation Wilber reported that she has notice Chief Complaint(s) Other Additional Areas of Concern neck pain Patient Knowledge/Awareness of COAT ROOM ATTENDANT Role Excellent in Treatment Objective Short Term Goals 1) Pt instruction in abdominal breathing to increase efficiency of breath support for speaking. 2) Tone-focus for increasing awareness of resonating areas within the vocal tract to further increase breathing and vocal efficiency. Treatment Activities Jeniffer reported that she has noticed a calming effect with the abdominal breathing re: her anxiety. However, she had not noticed any change in her neck pain . She remarked that the discussion we had last week about the effects of GERD/LPR on the vocal folds and the related effects that can occur throughout the oropharyngeal area really spoke to her. She further reported that she has a GI consult in the nesr future. Finally she felt that she wanted to investigate the GI/ GERD before she continues to get more speech therapy. We discussed that pending the results of her GI assessment, she can contact this office any time to return for more therapy. She and I both agreed that she would be discharged from therapy aat this time. Assessment Patient Response to Treatment Good Impairments Identified Other Additional Impairments Identified neck pain Assessment of Overall Progress Unchanged Plan Amount of Therapy Recommended No Further Therapy Frequency of Treatment No Further Therapy Therapy Recommendations Discharge from Speech Therapy Suggested Referral GI
== END 2018-12-12 14:14 | disposition home or self-care (01) ==
LOC: SP 16:30
PROVIDERS: PCP Family Medicine; Visit Provider Otolaryngology
DX: R49.0 Dysphonia (principal); J38.3 Other diseases of vocal cords
CPT/HCPCS: 92507; 92524

== ENCOUNTER 2019-05-07 11:20 | Emergency (ER) | payer OTHER, SELFPAY ==
[2019-05-07 11:25] VITALS: BP 125/77; PULSE 66; RESP 18; TEMP 37.2; O2SAT 100
--- NOTE | 2019-05-07 11:53 | DI.US.S_ITS ---
PROCEDURE: US ABDOMEN LIMITED INDICATIONS: RUQ, EPIGASTRIC PAIN TECHNIQUE: Real-time focused scanning was performed of the abdomen, with image documentation. COMPARISON: None. FINDINGS: No gallstones. No gallbladder wall thickening, pericholecystic fluid or sonographic Ojeda's sign. There are 2 subtle hyperechoic areas in the left hepatic lobe anteriorly just to the falciform ligament, measuring 2.0 x 0.9 x 1.4 cm and 0.9 x 0.6 x 1.2 cm. IMPRESSION: 1. No gallstones or findings to suggest acute cholecystitis. 2. Two subtle hyperechoic areas in the left hepatic lobe anteriorly just to the falciform ligament, measuring 2.0 x 0.9 x 1.4 cm and 0.9 x 0.6 x 1.2 cm. Differential diagnoses include focal fat versus hemangiomas. Followup imaging, such as a hepatic protocol CT or MRI, is suggested. Dictated by: Becka Bob M.D. on 05/07/2019 at 12:39 Approved by: Becka Bob M.D. on 05/07/2019 at 12:57
[2019-05-07] MEDS: SODIUM CHLORIDE 0.9% 1,000 ML 1000 ML IV (12:10)
[2019-05-07 12:40] LABS: Add Manual Diff / Slide Review NO; Basophils Absolute Auto 0 /uL (0-100); Basophils Percent Auto 0.4 % (0-2); Eosinophils Absolute Auto 100 /uL (0-450); Eosinophils Percent Auto 1.2 % (2-4); Hematocrit 40.5 % (36-46); Hemoglobin 14.2 g/dL (12.0-16.0); Lymphocytes Absolute Auto 2700 /uL (1100-4500); Lymphocytes Percent Auto 34.1 % (25-40); Mean Corpuscular Hemoglobin 31.9 PG (26-34); Mean Corpuscular Volume 91.1 fL (80-100); Monocytes Absolute Auto 500 /uL (0-900); Monocytes Percent Auto 6.3 % (3-14); Neutrophils Absolute Auto 4600 /uL (1500-7000); Platelet Count 256 X10^3/uL (150-400); Red Blood Cell Count 4.45 X10^6/uL (4.0-5.2); Red Cell Distribution Width 12.2 % (11.6-14.8); White Blood Cell Count 7.9 X10^3/uL (4.5-11.0)
[2019-05-07] MEDS: ONDANSETRON 4 MG/2 ML INJ IV (12:47)
[2019-05-07] MEDS: ACETAMINOPHEN 325 MG TABLET 975 MG PO (12:48)
[2019-05-07 12:52] LABS: Prothrombin Time 11.3 SECONDS (10.1-12.7)
[2019-05-07 12:55] LABS: PTT Partial Thromboplastin Tim 32 SECONDS (26.4-36.2)
[2019-05-07 13:03] LABS: Alanine Aminotransferase 11 IU/L (<35); Albumin 4.3 g/dL (3.5-5.0); Albumin Globulin Ratio 1.7 (1.0-2.8); Alkaline Phosphatase 64 U/L (38-126); Aspartate Aminotransferase 24 IU/L (14-36); Bilirubin Total 0.5 mg/dL (0.2-1.3); Blood Urea Nitrogen 12 mg/dL (7-17); Calcium 9.1 mg/dL (8.4-10.2); Carbon Dioxide 29 mmol/L (22-32); Chloride 103 mmol/L (98-107); Estimated Glomerular Filt Rate > 60.0 mL/min (>60); Globulin 2.5 g/dL (1.7-4.1); Glucose 83 mg/dL (70-100); HEMOLYSIS < 15 (0-50); Lipase 53 U/L (23-300); Potassium 3.7 mmol/L (3.4-5.1); Sodium 138 mmol/L (137-145); Total Protein 6.8 g/dL (6.3-8.2)
--- NOTE | 2019-05-07 13:17 | DI.CT.S_ITS ---
PROCEDURE: CT ABDOMEN PELVIS W CON INDICATIONS: abdominal pains with nausea TECHNIQUE: After the administration of intravenous contrast, 5 mm thick sections acquired from the diaphragm to the symphysis. 5 mm coronal and sagittal reformats were acquired. For radiation dose reduction, the following was used: automated exposure control, adjustment of mA and/or kV according to patient size. COMPARISON: None. FINDINGS: Image quality: Excellent. ABDOMEN: Lung bases: Lung bases are clear. Heart size is normal. Solid organs: Liver is normal in size and diffusely hypodense suggesting fatty infiltration. Gallbladder is mildly contracted. Biliary system is non dilated. Pancreas enhances normally. Spleen is normal in size and enhancement. No adrenal nodules. Kidneys demonstrate normal size and enhancement, without hydronephrosis. 1 mm diameter nonobstructing calculi are present bilaterally within the renal pelves. Peritoneum and bowel: Bowel loops demonstrate normal wall thickness and caliber. The appendix is thin walled and gas filled. No free fluid or air. Nodes and vessels: No retroperitoneal or mesenteric adenopathy by size criteria. Aorta and inferior vena cava are normal in size. Miscellaneous: No ventral hernias. PELVIS: Genitourinary: Bladder wall thickness is normal. The uterus and ovaries are not visualized and may be surgically absent. Miscellaneous: No inguinal hernias or adenopathy. Bones: No suspicious bony lesions. No vertebral body compression fractures. IMPRESSION: 1. No acute intra-abdominal findings. Normal appendix. 2. Hepatic steatosis. Dictated by: Tatum Chaudhary M.D. on 05/07/2019 at 12:36 Approved by: Tatum Chaudhary M.D. on 05/07/2019 at 12:39
--- NOTE | 2019-05-07 14:14 | ED_ITS ---
HPI - Abdominal Pain <DEBI Mcqueen - Last Filed: 05/07/19 19:39> General Chief Complaint: Abdominal Pain Stated Complaint: difficulty breathing with eating,chest pain,vomiti Time Seen by Provider: 05/07/19 11:40 Source: patient and family Mode of arrival: Ambulatory Limitations: no limitations History of Present Illness HPI narrative: The patient is a 38-year-old female current smoker with history of atypical chest pain who presents with a chief complaint of epigastric pain and difficulty breathing when eating. She states that when she eats, she has sudden pain in the epigastric area that makes it difficult to breathe. She states it is worse after eating, and only occurs after eating. She states has been going on for months, since she started the keto diet in June. She states it got worse a few days ago. She states that she has had trouble keeping things down. Related Data Home Medications Medication Instructions Recorded Confirmed albuterol sulfate [ProAir HFA] 1 puff INHALATION PRN PRN 11/21/18 05/07/19 estradiol [Estrace] 1 mg PO DAILY 11/21/18 05/07/19 fluticasone propion-salmeterol 1 puff INHALATION BID 11/21/18 05/07/19 [Advair HFA] Berberine 1 dose PO DAILY 05/07/19 05/07/19 Blue [place] 1 dose PO DIRECTED 05/07/19 05/07/19 estradiol [Eve] 1 patch TOPICAL 2XW 05/07/19 05/07/19 Previous Rx's Medication Instructions Recorded ketorolac 10 mg PO TID PRN #15 tab 05/07/19 ondansetron 4 mg PO Q6H PRN #20 tab 05/07/19 Allergies Allergy/AdvReac Type Severity Reaction Status Date / Time hydrocodone Allergy Verified 11/21/18 08:21 Review of Systems <DEBI Mcqueen - Last Filed: 05/07/19 19:39> Review of Systems Narrative: GENERAL: Denies chills, fatigue, malaise, fever, sweats. HEENT: Denies sinus pain, ear pain, sore throat, difficulty swallowing, dizziness. RESPIRATORY: Denies dyspnea, cough, wheezing, hemoptysis, sputum. CARDIOVASCULAR: Denies chest pain, palpitations, orthopnea, edema, GASTROINTESTINAL: See HPI : Denies dysuria, frequency, incontinence, hematuria, urinary retention. MUSCULOSKELETAL: denies weakness, joint pain, or bony pain SKIN: Denies rash, skin lesions, or other NEUROLOGIC: Denies weakness, headache, numbness, change in speech, confusion, seizures, incoordination. PSYCHIATRIC: No concerning psychosocial issues. 12 point review of systems is negative except for those stated above Patient History <DEBI Mcqueen - Last Filed: 05/07/19 19:39> Medical History Fibromyalgia (Chronic) Surgical History History of hysterectomy (Chronic) Family History Father Asbestosis Social History Smoking Status: Current some day smoker alcohol intake: never substance use type: does not use Smoking Status: Current some day smoker alcohol intake frequency: 0-2 drinks per day Substance Use Type: does not use Exam <DEBI Mcqueen - Last Filed: 05/07/19 19:39> Narrative Exam Narrative: GENERAL: This is a well-nourished, well-developed patient, in no acute distress HEAD: Atraumatic. Normocephalic. No temporal or scalp tenderness. EYES: Pupils equal round and reactive. Extraocular motions intact. No scleral icterus. No injection or drainage. ENT: Nose without bleeding, purulent drainage or septal hematoma. Throat without erythema, tonsillar hypertrophy or exudate. Uvula midline. Airway patent. NECK: Trachea midline. No JVD or lymphadenopathy. Supple, nontender, no m eningeal signs. CARDIOVASCULAR: Regular rate and rhyth RESPIRATORY: Clear to auscultation. Breath sounds equal bilaterally. No wheezes, rales, or rhonchi. No cough. No increased respiratory effort. No accessory muscle use. GASTROINTESTINAL: Abdomen soft, epigastric tenderness to palpation with right upper quadrant pain to palpation, nondistended. No hepato-splenomegaly, or palpable masses. No guarding. Active bowel sounds all 4 quadrants EXTREMITIES: No clubbing, cyanosis, or edema. No joint tenderness, effusion, or edema noted. BACK: Nontender without deformity or crepitance. No flank tenderness. NEURO: AOx3. SKIN: No rash or erythema on visible skin Initial Vital Signs Initial Vital Signs: Vital Signs Temperature 98.9 F 05/07/19 11:25 Pulse Rate 66 05/07/19 11:25 Respiratory Rate 18 05/07/19 11:25 Blood Pressure 125/77 05/07/19 11:25 Pulse Oximetry 100 05/07/19 11:25 <Calli Pisano MD - Last Filed: 05/14/19 08:08> Initial Vital Signs Initial Vital Signs: Vital Signs Temperature 98.9 F 05/07/19 11:25 Pulse Rate 66 05/07/19 11:25 Respiratory Rate 18 05/07/19 11:25 Blood Pressure 125/77 05/07/19 11:25 Pulse Oximetry 100 05/07/19 11:25 Course <DEBI Mcqueen - Last Filed: 05/07/19 19:39> Orders Ordered: Discontinued Medications Acetaminophen (Tylenol) 975 mg PO NOW ONE Stop: 05/07/19 12:44 Last Admin: 05/07/19 12:48 Dose: 975 mg Documented by: ALEX Sodium Chloride (Normal Saline 0.9%) 1,000 mls @ 1,000 mls/hr IV BOLUS ONE Stop: 05/07/19 12:35 Last Infusion: 05/07/19 14:21 Dose: 0 mls/hr Documented by: Admin: 05/07/19 12:10 Dose: 1,000 mls/hr Documented by: ALEX Ketorolac Tromethamine (Toradol) 30 mg IV NOW ONE Stop: 05/07/19 14:05 Last Admin: 05/07/19 14:26 Dose: 30 mg Documented by: ALEX Ondansetron HCl (Zofran) 4 mg IV NOW ONE Stop: 05/07/19 11:37 Last Admin: 05/07/19 12:47 Dose: 4 mg Documented by: ALEX Pantoprazole Sodium (Protonix) 40 mg IV NOW ONE Stop: 05/07/19 11:56 Last Admin: 05/07/19 12:48 Dose: Not Given Documented by: ALEX Vital Signs Vital signs: Vital Signs - 8 hr 05/07/19 14:40 Temperature 97.5 F L Pulse Rate 72 Respiratory Rate 16 Blood Pressure 124/64 Pulse Oximetry 100 <Calli Pisano MD - Last Filed: 05/14/19 08:08> Orders Ordered: Discontinued Medications Acetaminophen (Tylenol) 975 mg PO NOW ONE Stop: 05/07/19 12:44 Last Admin: 05/07/19 12:48 Dose: 975 mg Documented by: ALEX Sodium Chloride (Normal Saline 0.9%) 1,000 mls @ 1,000 mls/hr IV BOLUS ONE Stop: 05/07/19 12:35 Last Infusion: 05/07/19 14:21 Dose: 0 mls/hr Documented by: Admin: 05/07/19 12:10 Dose: 1,000 mls/hr Documented by: ALEX Ketorolac Tromethamine (Toradol) 30 mg IV NOW ONE Stop: 05/07/19 14:05 Last Admin: 05/07/19 14:26 Dose: 30 mg Documented by: ALEX Ondansetron HCl (Zofran) 4 mg IV NOW ONE Stop: 05/07/19 11:37 Last Admin: 05/07/19 12:47 Dose: 4 mg Documented by: ALEX Pantoprazole Sodium (Protonix) 40 mg IV NOW ONE Stop: 05/07/19 11:56 Last Admin: 05/07/19 12:48 Dose: Not Given Documented by: ALEX Vital Signs Vital signs: Vital Signs - 8 hr 05/07/19 14:40 Temperature 97.5 F L Pulse Rate 72 Respiratory Rate 16 Blood Pressure 124/64 Pulse Oximetry 100 MDM - Abdominal Pain <DEBI Mcqueen - Last Filed: 05/07/19 19:39> Lab Data Result diagrams: 05/07/19 12:30 05/07/19 12:30 Labs: Lab Results 05/07/19 05/07/19 05/07/19 Range/Units 12:30 12:30 12:30 WBC 7.9 (4.5-11.0) X10^3/uL RBC 4.45 (4.0-5.2) X10^6/uL Hgb 14.2 (12.0-16.0) g/dL Hct 40.5 (36-46) % MCV 91.1 (80-100) fL MCH 31.9 (26-34) PG MCHC 35.0 (30-36) % RDW 12.2 (11.6-14.8) % Plt Count 256 (150-400) X10^3/uL Neut % (Auto) 58.0 (50-75) % Lymph % (Auto) 34.1 (25-40) % [place]ois % (Auto) 6.3 (3-14) % Eos % (Auto) 1.2 L (2-4) % Baso % (Auto) 0.4 (0-2) % Neut # (Auto) 4600 (6864-9165) /uL Lymph # (Auto) 2700 (4897-6718) /uL [place] # (Auto) 500 (0-900) /uL Eos # (Auto) 100 (0-450) /uL Baso # (Auto) 0 (0-100) /uL PT 11.3 (10.1-12.7) SECONDS INR 1.0 (0.9-1.3) APTT 32 D (26.4-36.2) SECONDS Sodium 138 (137-145) mmol/L Potassium 3.7 (3.4-5.1) mmol/L Chloride 103 (98-107) mmol/L Carbon Dioxide 29 (22-32) mmol/L BUN 12 (7-17) mg/dL Creatinine 0.60 (0.52-1.04) mg/dL Estimated GFR > 60.0 (>60) mL/min BUN/Creatinine Ratio 20.0 (6-22) Glucose 83 (70-100) mg/dL Calcium 9.1 (8.4-10.2) mg/dL Total Bilirubin 0.5 (0.2-1.3) mg/dL AST 24 (14-36) IU/L ALT 11 (<35) IU/L Alkaline Phosphatase 64 (38-126) U/L Total Protein 6.8 (6.3-8.2) g/dL Albumin 4.3 (3.5-5.0) g/dL Globulin 2.5 (1.7-4.1) g/dL Albumin/Globulin Ratio 1.7 (1.0-2.8) Lipase 53 (23-300) U/L Point of care testing: Point of Care Testing Test Results Negative Urine Dip Bedside Urine Glucose Negative Bedside Urine Bilirubin - Negative Bedside Urine Ketone - Negative Urine Specific [place] 1.015 Bedside Urine Occult Blood - Negative Bedside Urine pH 7.0 Bedside Urine Protein - Negative Bedside Urine Urobilinogen - Negative Bedside Urine Nitrite - Negative Bedside Urine Leukocytes - Negative Esterase Imaging Data CT scan - abdomen/pelvis: Radiologist's Impression: [address] [id number] [address] Scan Report Signed Patient: Jeniffer Hartley RMR#: [id number] : 1980Acct:[id number] Age/Sex: 38 / FDate of Service: 05/07/19 Loc: ED Accession Number: [id number] Procedure: CT abdomen pelvis w con Ordering Provider: Agatha Edwards ATOMIC PROCESS ENGINEER-BC PROCEDURE: CT ABDOMEN PELVIS W CON INDICATIONS: abdominal pains with nausea TECHNIQUE: After the administration of intravenous contrast, 5 mm thick sections acquired from the diaphragm to the symphysis. 5 mm coronal and sagittal reformats were acquired. For radiation dose reduction, the following was used: automated exposure control, adjustment of mA and/or kV according to patient size. COMPARISON: None. FINDINGS: Image quality: Excellent. ABDOMEN: Lung bases: Lung bases are clear. Heart size is normal. Solid organs: Liver is normal in size and diffusely hypodense suggesting fatty infiltration. Gallbladder is mildly contracted. Biliary system is non dilated. Pancreas enhances normally. Spleen is normal in size and enhancement. No adrenal nodules. Kidneys demonstrate normal size and enhancement, without hydronephrosis. 1 mm diameter nonobstructing calculi are present bilaterally within the renal pelves. Peritoneum and bowel: Bowel loops demonstrate normal wall thickness and caliber. The appendix is thin walled and gas filled. No free fluid or air. Nodes and vessels: No retroperitoneal or mesenteric adenopathy by size criteria. Aorta and inferior vena cava are normal in size. Miscellaneous: No ventral hernias. PELVIS: Genitourinary: Bladder wall thickness is normal. The uterus and ovaries are not visualized and may be surgically absent. Miscellaneous: No inguinal hernias or adenopathy. Bones: No suspicious bony lesions. No vertebral body compression fractures. IMPRESSION: 1. No acute intra-abdominal findings. Normal appendix. 2. Hepatic steatosis. Dictated by: Tatum Chaudhary M.D. on 05/07/2019 at 12:36 Approved by: Tatum Chaudhary M.D. on 05/07/2019 at 12:39 US - abdomen: Radiologist's Impression: [address] [address] [address] Scan Report Signed Patient: Jeniffer Hartley RMR#: [id number] : 1980Acct:[id number] Age/Sex: 38 / FDate of Service: 05/07/19 Loc: ED Accession Number: [id number] Procedure: CT abdomen pelvis w con Ordering Provider: Agatha Edwards- PROCEDURE: CT ABDOMEN PELVIS W CON INDICATIONS: abdominal pains with nausea TECHNIQUE: After the administration of intravenous contrast, 5 mm thick sections acquired from the diaphragm to the symphysis. 5 mm coronal and sagittal reformats were acquired. For radiation dose reduction, the following was used: automated exposure control, adjustment of mA and/or kV according to patient size. COMPARISON: None. FINDINGS: Image quality: Excellent. ABDOMEN: Lung bases: Lung bases are clear. Heart size is normal. Solid organs: Liver is normal in size and diffusely hypodense suggesting fatty infiltration. Gallbladder is mildly contracted. Biliary system is non dilated. Pancreas enhances normally. Spleen is normal in size and enhancement. No adrenal nodules. Kidneys demonstrate normal size and enhancement, without hydronephrosis. 1 mm diameter nonobstructing calculi are present bilaterally within the renal pelves. Peritoneum and bowel: Bowel loops demonstrate normal wall thickness and caliber. The appendix is thin walled and gas filled. No free fluid or air. Nodes and vessels: No retroperitoneal or mesenteric adenopathy by size criteria. Aorta and inferior vena cava are normal in size. Miscellaneous: No ventral hernias. PELVIS: Genitourinary: Bladder wall thickness is normal. The uterus and ovaries are not visualized and may be surgically absent. Miscellaneous: No inguinal hernias or adenopathy. Bones: No suspicious bony lesions. No vertebral body compression fractures. IMPRESSION: 1. No acute intra-abdominal findings. Normal appendix. 2. Hepatic steatosis. Dictated by: Tatum Chaudhary M.D. on 05/07/2019 at 12:36 Approved by: Tatum Chaudhary M.D. on 05/07/2019 at 12:39 [facility] Narrative Medical decision making narrative: The patient is a 38-year-old female who presents with a chief complaint of right upper quadrant epigastric pain. This h as been ongoing for the past few months, worse over the past few days. Ultrasound is negative for any acute cholecystitis. Given the patient's continued pain discomfort and longstanding issues, we did obtain a CT of her abdomen which came back with no acute findings middle hepatic steatosis. I di scussed at length the etiology of biliary colic, dietary changes, as well as eating a simple diet. I offered to try a GI cocktail or Protonix, but the patient declined. I discharged her with prescriptions of Toradol as well as Zofran. Encourage PCP follow-up in the next few days. I discussed low-fat diet, coming back to the emergency department for any acute concerns such as inability keep down fluids, abdominal pain with fever etc.. Patient has no questions or concerns upon discharge and states understanding of return precautions as well as follow-up care. <Calli Pisano MD - Last Filed: 05/14/19 08:08> Lab Data Labs: Lab Results 05/07/19 05/07/19 05/07/19 Range/Units 12:30 12:30 12:30 WBC 7.9 (4.5-11.0) X10^3/uL RBC 4.45 (4.0-5.2) X10^6/uL Hgb 14.2 (12.0-16.0) g/dL Hct 40.5 (36-46) % MCV 91.1 (80-100) fL MCH 31.9 (26-34) PG MCHC 35.0 (30-36) % RDW 12.2 (11.6-14.8) % Plt Count 256 (150-400) X10^3/uL Neut % (Auto) 58.0 (50-75) % Lymph % (Auto) 34.1 (25-40) % [place] % (Auto) 6.3 (3-14) % Eos % (Auto) 1.2 L (2-4) % Baso % (Auto) 0.4 (0-2) % Neut # (Auto) 4600 (1253-4150) /uL Lymph # (Auto) 2700 (7849-5309) /uL [place] # (Auto) 500 (0-900) /uL Eos # (Auto) 100 (0-450) /uL Baso # (Auto) 0 (0-100) /uL PT 11.3 (10.1-12.7) SECONDS INR 1.0 (0.9-1.3) APTT 32 D (26.4-36.2) SECONDS Sodium 138 (137-145) mmol/L Potassium 3.7 (3.4-5.1) mmol/L Chloride 103 (98-107) mmol/L Carbon Dioxide 29 (22-32) mmol/L BUN 12 (7-17) mg/dL Creatinine 0.60 (0.52-1.04) mg/dL Estimated GFR > 60.0 (>60) mL/min BUN/Creatinine Ratio 20.0 (6-22) Glucose 83 (70-100) mg/dL Calcium 9.1 (8.4-10.2) mg/dL Total Bilirubin 0.5 (0.2-1.3) mg/dL AST 24 (14-36) IU/L ALT 11 (<35) IU/L Alkaline Phosphatase 64 (38-126) U/L Total Protein 6.8 (6.3-8.2) g/dL Albumin 4.3 (3.5-5.0) g/dL Globulin 2.5 (1.7-4.1) g/dL Albumin/Globulin Ratio 1.7 (1.0-2.8) Lipase 53 (23-300) U/L Point of care testing: Point of Care Testing Test Results Negative Urine Dip Bedside Urine Glucose Negative Bedside Urine Bilirubin - Negative Bedside Urine Ketone - Negative Urine Specific [place] 1.015 Bedside Urine Occult Blood - Negative Bedside Urine pH 7.0 Bedside Urine Protein - Negative Bedside Urine Urobilinogen - Negative Bedside Urine Nitrite - Negative Bedside Urine Leukocytes - Negative Esterase Discharge Plan Departure Patient Disposition: Home Clinical Impression: Biliary colic, Hepatic steatosis Abdominal pain Qualifiers: Abdominal location: epigastric Qualified Code(s): R10.13 - Epigastric pain Discharge Date/Time: 05/07/19 15:01 Instructions: Gallstones (Alternative Therapy), DI for Abdominal Pain-Adult, DI for Biliary Colic Activity Restrictions/Additional Instructions: I sent prescriptions of Toradol and Zofran to [facility] in [place] I have given you a prescription of Toradol. This is an NSAID. Do not combine it with other NSAIDs such as Aleve or ibuprofen. I suggest taking it with some food, as it can irritate your stomach. Please eat a light diet, avoid fatty foods, . Please come back to the emergency department for any acute concerns such as inability keep down fluids etcetera Your pain correlates with biliary colic. I have given you discharge instructions regarding biliary colic. They also noted some hepatic steatosis on your ultrasound and CT Please follow-up with primary care provider next few days Prescriptions: New ketorolac 10 mg tablet 10 mg PO TID PRN (Reason: pain) Qty: 15 RF: 0 ondansetron 4 mg tablet,disintegrating 4 mg PO Q6H PRN (Reason: nausea and vomiting) Qty: 20 RF: 0 No Action estradiol [Estrace] 1 mg tablet 1 mg PO DAILY RF: 0 albuterol sulfate [ProAir HFA] 90 mcg/actuation HFA aerosol inhaler 1 puff inhalation PRN PRN (Reason: Shortness Of Breath) RF: 0 Advair HFA 230-21 mcg/actuation HFA aerosol inhaler 1 puff inhalation BID RF: 0 estradiol [Eve] 0.1 mg/24 hr patch semiweekly 1 patch topical 2XW RF: 0 Berberine 1 dose PO DAILY RF: 0 Blue [place]ath[place] 1 dose PO DIRECTED RF: 0 Referrals: Julee Gerber MD [Primary Care Provider] -
[2019-05-07] MEDS: KETOROLAC 60 MG/2 ML VIAL 30 MG IV (14:26)
[2019-05-07 14:40] VITALS: BP 124/64; PULSE 72; RESP 16; TEMP 36.4; O2SAT 100
== END 2019-05-07 15:01 | disposition home or self-care (01) ==
PROVIDERS: Emergency Medicine; Emergency Provider Nurse Practitioner Family; PCP Family Medicine
DX: K80.50 Calculus of bile duct without cholangitis or cholecystitis without obstruction (principal); R10.13 Epigastric pain; K76.0 Fatty (change of) liver, not elsewhere classified
CPT/HCPCS: 36415; 74177; 76705; 80053; 81003; 81025; 83690; 85025; 85610; 85730; 93005; 96361; 96374; 96375; 99284; J1885; J2405; Q9967

== ENCOUNTER → 2019-10-16 16:13 | Outpatient (CLI) | payer OTHER, SELFPAY ==
--- NOTE | 2019-10-16 | DI.RAD.S_ITS ---
PROCEDURE: XR CERVICAL SPINE MIN 6V INDICATIONS: sprain of ligaments of c spine L arm radiculopathy TECHNIQUE: 7 views of the cervical spine were acquired. COMPARISON: None. FINDINGS: Bones: No fractures or dislocations to the T1 level. No suspicious bony lesions. There is normal range of motion between flexion and extension, with preserved normal bony alignment. Osteophytes involve the lower lumbar spine consistent with mild early disc degeneration. No significant neural foraminal narrowing bilaterally. Soft tissues: Prevertebral soft tissues are normal in thickness. IMPRESSION: Minimal early lower cervical spine disc degeneration. Dictated by: Pedro Garner [facility] Interpreted: Clint Schaefer MD on 10/16/2019 at 16:58 Approved by: Clint Schaefer M.D. on 10/16/2019 at 17:22
== END ==
PROVIDERS: PCP Family Medicine; Referring Provider Nurse Practitioner Family; Visit Provider Nurse Practitioner Family
DX: S13.4XXA Sprain of ligaments of cervical spine, initial encounter (principal); M54.12 Radiculopathy, cervical region
CPT/HCPCS: 72052

== ENCOUNTER → 2019-11-25 11:44 | Outpatient (CLI) | payer OTHER, SELFPAY ==
--- NOTE | 2019-11-25 11:50 | DI.RAD.S_ITS ---
PROCEDURE: XR CHEST 2V INDICATIONS: cough/SHOB/sputum TECHNIQUE: 2 views of the chest were acquired. COMPARISON: [facility], CT, CT ABDOMEN PELVIS W CON, 05/07/2019, 13:13. [facility], CR, XR CHEST 1V, 11/21/2018, 8:21. [facility], CR, XR CHEST 1V, 10/22/2018, 18:52. FINDINGS: Surgical changes and devices: None. Lungs and pleura: Lungs are clear. No pleural effusions or pneumothorax. Note is made of a relatively prominent pre pericardial right-sided costophrenic sulcus fat pad also seen by CT scanning 05/07/19. This is seen only on the frontal view. No mass in this area is suspected. Mediastinum: Mediastinal contours are normal. Heart size is normal. Bones and chest wall: No suspicious bony abnormalities. Soft tissues appear unremarkable. IMPRESSION: No pneumonia found. Mildly prominent pre pericardial fat pad on the right incidentally noted. This also is present on prior CT scanning from April of last year. Dictated by: Clint Schaefer M.D. on 11/25/2019 at 12:25 Approved by: Clint Schaefer M.D. on 11/25/2019 at 12:28
[2019-11-25 13:26] LABS: D Dimer < 200 ng/mL (<230)
== END ==
PROVIDERS: PCP Nurse Practitioner Family; Referring Provider Student in an Organized Health Care Education/Training Program; Visit Provider Student in an Organized Health Care Education/Training Program
DX: R05 Cough (principal); R06.02 Shortness of breath
CPT/HCPCS: 36415; 71046; 85379

== ENCOUNTER → 2020-04-10 13:40 | Outpatient (CLI) | payer OTHER, SELFPAY ==
--- NOTE | 2020-04-10 13:41 | DI.MG.S_ITS ---
BILATERAL DIGITAL SCREENING MAMMOGRAM 3D/2D WITH CAD: 04/10/2020 CLINICAL: Routine screening. Comparison is made to exams dated: 12/19/2018 mammogram and 07/19/2012 mammogram - [facility]. The tissue of both breasts is heterogeneously dense. This may lower the sensitivity of mammography. Current study was also evaluated with a Computer Aided Detection (CAD) system. No significant masses, calcifications, or other findings are seen in either breast. There has been no significant interval change. IMPRESSION: NEGATIVE There is no mammographic evidence of malignancy. A 1 year screening mammogram is recommended. This exam was interpreted at Station ID: [id number]. NOTE: For mammograms, a report in lay terms will be sent to the patient. Approximately 15% of breast malignancies will not be visualized mammographically. In the management of a palpable breast mass, a negative mammogram must not discourage biopsy of a clinically suspicious lesion. Electronically Signed By: Tatum tan/payton:04/14/2020 10:08:50 letter sent: Normal Exam ACR BI-RADS Category 1: Negative [id number]
== END ==
PROVIDERS: PCP Nurse Practitioner Family; Referring Provider Nurse Practitioner Family; Visit Provider Nurse Practitioner Family
DX: Z12.31 Encounter for screening mammogram for malignant neoplasm of breast (principal)
CPT/HCPCS: 77063; 77067

== ENCOUNTER → 2021-04-13 16:50 | Outpatient (CLI) | payer OTHER, SELFPAY ==
--- NOTE | 2021-04-13 | DI.MG.S_ITS ---
BILATERAL DIGITAL SCREENING MAMMOGRAM 3D/2D WITH CAD: 04/13/2021 CLINICAL: Routine screening. Comparison is made to exams dated: 04/10/2020 mammogram - [facility], 12/19/2018 mammogram, and 07/19/2012 mammogram - [facility]. The tissue of both breasts is heterogeneously dense. This may lower the sensitivity of mammography. Current study was also evaluated with a Computer Aided Detection (CAD) system. No significant masses, calcifications, or other findings are seen in either breast. There has been no significant interval change. IMPRESSION: NEGATIVE There is no mammographic evidence of malignancy. A 1 year screening mammogram is recommended. This exam was interpreted at Station ID: [id number]. NOTE: For mammograms, a report in lay terms will be sent to the patient. Approximately 15% of breast malignancies will not be visualized mammographically. In the management of a palpable breast mass, a negative mammogram must not discourage biopsy of a clinically suspicious lesion. Electronically Signed By: Maury bailey/payton:04/14/2021 09:52:55 letter sent: Normal Exam ACR BI-RADS Category 1: Negative [id number]
== END ==
PROVIDERS: PCP Nurse Practitioner Family; Referring Provider Registered Nurse; Visit Provider Registered Nurse
DX: Z12.31 Encounter for screening mammogram for malignant neoplasm of breast (principal)
CPT/HCPCS: 77063; 77067

== ENCOUNTER → 2022-06-17 15:36 | Outpatient (CLI) | payer OTHER, SELFPAY ==
--- NOTE | 2022-06-17 | DI.MG.S_ITS ---
BILATERAL DIGITAL SCREENING MAMMOGRAM 3D/2D WITH CAD: 06/17/2022 CLINICAL: Routine screening. Comparison is made to exams dated: 04/13/2021 mammogram, 04/10/2020 mammogram - [facility], and 12/19/2018 mammogram - [facility]. Both breasts are heterogeneously dense, which may obscure small masses (category c / 51-75% glandular tissue). Current study was also evaluated with a Computer Aided Detection (CAD) system. No significant masses, calcifications, or other findings are seen in either breast. There has been no significant interval change. IMPRESSION: NEGATIVE There is no mammographic evidence of malignancy. A 1 year screening mammogram is recommended. Based on the Tyrer Cuzick model (a risk assessment model) the patient's lifetime risk is 8.4% and her 10 year risk is 1.3%. According to the ACR, ACS, and NCCN guidelines, an annual breast MRI exam along with mammogram is recommended if the patient's lifetime risk is 20% or greater. This exam was interpreted at Station ID: [id number]. NOTE: For mammograms, a report in lay terms will be sent to the patient. Approximately 15% of breast malignancies will not be visualized mammographically. In the management of a palpable breast mass, a negative mammogram must not discourage biopsy of a clinically suspicious lesion. Electronically Signed By: Tatum tan/payton:06/17/2022 17:11:48 copy to: Katharine Jones letter sent: Normal Exam ACR BI-RADS Category 1: Negative [id number]
== END ==
PROVIDERS: PCP Registered Nurse; Referring Provider Registered Nurse; Visit Provider Registered Nurse
DX: Z12.31 Encounter for screening mammogram for malignant neoplasm of breast (principal)
CPT/HCPCS: 77063; 77067

== ENCOUNTER 2022-06-23 16:02 | Emergency (ER) | payer OTHER, SELFPAY ==
[2022-06-23 16:08] VITALS: BP 140/78; PULSE 59; RESP 17; TEMP 36.6; O2SAT 100; BMI 24.9
--- NOTE | 2022-06-23 16:17 | DI.US.S_ITS ---
PROCEDURE: US ABDOMEN LIMITED INDICATIONS: RIGHT UPPER QUADRANT PAIN TECHNIQUE: Real-time focused scanning was performed of the abdomen, with image documentation. COMPARISON: [facility], , US ABDOMEN LIMITED, 05/07/2019, 12:08. FINDINGS: Previously identified hyperechoic areas within the left hepatic lobe are not visualized on current exam. Gallbladder demonstrates no stones. Wall thickness is normal measuring 1.9 mm. Common bile duct measures 4 mm. IMPRESSION: No visualized gallstones or wall thickening. Dictated by: Shannon Viera M.D. on 06/23/2022 at 18:03 Approved by: Shannon Viera M.D. on 06/23/2022 at 18:04
[2022-06-23 17:05] LABS: Add Manual Diff / Slide Review NO; Basophils Absolute Auto 0 /uL (0-100); Basophils Percent Auto 0.5 % (0-2); Eosinophils Absolute Auto 100 /uL (0-450); Eosinophils Percent Auto 1.9 % (2-4); Hematocrit 38.5 % (36-46); Hemoglobin 13.5 g/dL (12.0-16.0); Lymphocytes Absolute Auto 3000 /uL (1100-4500); Lymphocytes Percent Auto 39.5 % (25-40); Mean Corpuscular HGB Conc 35.1 % (30-36); Mean Corpuscular Hemoglobin 31.8 PG (26-34); Mean Corpuscular Volume 90.7 fL (80-100); Monocytes Absolute Auto 400 /uL (0-900); Neutrophils Absolute Auto 4100 /uL (1500-7000); Neutrophils Percent Auto 53.1 % (50-75); Platelet Count 272 X10^3/uL (150-400); Red Blood Cell Count 4.25 X10^6/uL (4.0-5.2); Red Cell Distribution Width 11.7 % (11.6-14.8); White Blood Cell Count 7.7 X10^3/uL (4.5-11.0)
--- NOTE | 2022-06-23 17:06 | ED.ABDPAIN ---
HPI - Abdominal Pain <Yusuf Craft PA-C - Last Filed: 06/23/22 18:48> General Chief Complaint: Abdominal Pain Stated Complaint: ABD pain Time Seen by Provider: 06/23/22 16:50 Source: patient Mode of arrival: Ambulatory History of Present Illness HPI narrative: This is a 41-year-old female presents to the emergency department complaining of epigastric abdominal pain described as a squeezing sensation after eating a banana earlier today. She states the pain also somewhat radiates to the right upper quadrant. The pain does not worsen with fatty foods. She states that she is no pain currently but it comes intermittently. Denies any fevers, nausea, vomiting, constipation, diarrhea, or any other concerning signs or symptoms. Related Data Home Medications Medication Instructions Recorded Confirmed albuterol sulfate 90 mcg/actuation 1 puff inhalation PRN PRN 11/21/18 11/25/19 aerosol inhaler Shortness Of Breath estradiol 1 mg tablet 1 mg PO DAILY 11/21/18 06/23/22 fluticasone propionate 230 1 puff inhalation BID 11/21/18 11/25/19 mcg-salmeterol 21 mcg/actuation HFA inhaler Berberine 1 dose PO DAILY 05/07/19 11/25/19 Blue [place] 1 dose PO DIRECTED 05/07/19 11/25/19 fluticasone propion-salmeterol inhalation 11/25/19 11/25/19 [Advair Diskus] Allergies Allergy/AdvReac Type Severity Reaction Status Date / Time hydrocodone AdvReac GI upset Verified 06/23/22 16:10 Review of Systems <Yusuf Craft PA-C - Last Filed: 06/23/22 18:48> Review of Systems Narrative: GENERAL: Denies chills, fatigue, malaise, fever, sweats. HEENT: Denies sinus pain, ear pain, sore throat, difficulty swallowing, dizziness. RESPIRATORY: Denies dyspnea, cough, wheezing, hemoptysis, sputum. CARDIOVASCULAR: Denies chest pain, palpitations, orthopnea, edema, GASTROINTESTINAL: Reports abdominal pain, denies diarrhea, constipation, melena. : Denies dysuria, frequency, incontinence, hematuria, urinary retention. MUSCULOSKELETAL: denies weakness, joint pain, or bony pain SKIN: Denies rash, skin lesions, or other NEUROLOGIC: Denies weakness, headache, numbness, change in speech, confusion, seizures, incoordination. PSYCHIATRIC: No concerning psychosocial issues. 12 point review of systems is negative except for those stated above Patient History <Yusuf Craft PA-C - Last Filed: 06/23/22 18:48> Medical History (Updated 06/23/22 @ 18:39 by Yusuf Craft PA-C) Fibromyalgia Surgical History History of hysterectomy Family History Father Asbestosis Social History Smoking Status: Current some day smoker alcohol intake: never substance use type: does not use Smoking Status: Current some day smoker alcohol intake frequency: 0-2 drinks per day Substance Use Type: does not use Exam <Yusuf Craft PA-C - Last Filed: 06/23/22 18:48> Narrative Exam Narrative: GENERAL: Well-developed patient, in mild distress. HEAD: Atraumatic. Normocephalic. EYES: Pupils equal round and reactive. Extraocular motions intact. No scleral icterus. No injection or drainage. ENT: Nose without bleeding, purulent drainage. Airway patent. NECK: Trachea midline. Non tender GASTROINTESTINAL: Abdomen soft, non-tender, nondistended. NEURO: AOx3. SKIN: No rash or erythema of visible areas Initial Vital Signs Initial Vital Signs: Vital Signs Temperature 98 F 06/23/22 16:08 Pulse Rate 59 L 06/23/22 16:08 Respiratory Rate 17 06/23/22 16:08 Blood Pressure 140/78 06/23/22 16:08 Pulse Oximetry 100 06/23/22 16:08 Oxygen Delivery Method 06/23/22 16:08 <Nick Casas MD - Last Filed: 06/29/22 09:18> Initial Vital Signs Initial Vital Signs: Vital Signs Temperature 98 F 06/23/22 16:08 Pulse Rate 59 L 06/23/22 16:08 Respiratory Rate 17 06/23/22 16:08 Blood Pressure 140/78 06/23/22 16:08 Pulse Oximetry 100 06/23/22 16:08 Oxygen Delivery Method 06/23/22 16:08 Course <Yusuf Craft PA-C - Last Filed: 06/23/22 18:48> Orders Ordered: Discontinued Medications Ketorolac Tromethamine (Ketorolac 30 Mg/Ml Vial) 15 mg IV NOW ONE Stop: 06/23/22 18:06 Last Admin: 06/23/22 18:13 Dose: 15 mg Documented By: ORIANA Vital Signs Vital signs: Vital Signs - 8 hr 06/23/22 16:08 Temperature 98 F Pulse Rate 59 L Respiratory Rate 17 Blood Pressure 140/78 Pulse Oximetry 100 Oxygen Delivery Method Room Air <Nick Casas MD - Last Filed: 06/29/22 09:18> Orders Ordered: Discontinued Medications Ketorolac Tromethamine (Ketorolac 30 Mg/Ml Vial) 15 mg IV NOW ONE Stop: 06/23/22 18:06 Last Admin: 06/23/22 18:13 Dose: 15 mg Documented By: ORIANA Vital Signs Vital signs: Vital Signs - 8 hr 06/23/22 16:08 Temperature 98 F Pulse Rate 59 L Respiratory Rate 17 Blood Pressure 140/78 Pulse Oximetry 100 Oxygen Delivery Method Room Air MDM - Abdominal Pain <Yusuf Craft PA-C - Last Filed: 06/23/22 18:48> Lab Data 06/23/22 16:30 06/23/22 16:30 Labs: Lab Results 06/23/22 06/23/22 Range/Units 16:30 16:30 WBC 7.7 (4.5-11.0) X10^3/uL RBC 4.25 (4.0-5.2) X10^6/uL Hgb 13.5 (12.0-16.0) g/dL Hct 38.5 (36-46) % MCV 90.7 (80-100) fL MCH 31.8 (26-34) PG MCHC 35.1 (30-36) % RDW 11.7 (11.6-14.8) % Plt Count 272 (150-400) X10^3/uL Neut % (Auto) 53.1 (50-75) % Lymph % (Auto) 39.5 (25-40) % [place] % (Auto) 5.0 (3-14) % Eos % (Auto) 1.9 L (2-4) % Baso % (Auto) 0.5 (0-2) % Neut # (Auto) 4100 (7475-1315) /uL Lymph # (Auto) 3000 (8231-7466) /uL [place] # (Auto) 400 (0-900) /uL Eos # (Auto) 100 (0-450) /uL Baso # (Auto) 0 (0-100) /uL Sodium 138 (137-145) mmol/L Potassium 3.5 (3.4-5.1) mmol/L Chloride 100 (98-107) mmol/L Carbon Dioxide 29 (22-32) mmol/L BUN 11 (7-17) mg/dL Creatinine 0.62 (0.52-1.04) mg/dL Estimated GFR > 60 (>60) mL/min BUN/Creatinine Ratio 17.7 (6-22) Glucose 95 (70-100) mg/dL Calcium 8.9 (8.4-10.2) mg/dL Total Bilirubin 0.2 (0.2-1.3) mg/dL AST 32 (14-36) IU/L ALT 28 (<35) IU/L Alkaline Phosphatase 61 (38-126) U/L Total Protein 7.2 (6.3-8.2) g/dL Albumin 4.3 (3.5-5.0) g/dL Globulin 2.9 (1.7-4.1) g/dL Albumin/Globulin Ratio 1.5 (1.0-2.8) Lipase 75 (23-300) U/L Imaging Data US - abdomen: Radiologist's Impression: [address] [address] Ultrasound Report Signed Patient: Jeniffer Hartley MR#: [id number] : 1980 Acct:[id number] Age/Sex: 41 / F Date of Service: 06/23/22 Loc: ED Accession Number: [id number] ?? Procedure: US abdomen limited Ordering Provider: Yusuf Craft P.A-C PROCEDURE: US ABDOMEN LIMITED ? INDICATIONS:? RIGHT UPPER QUADRANT PAIN ? TECHNIQUE:? Real-time focused scanning was performed of the abdomen, with image documentation.? ? COMPARISON:? [facility], [place], US ABDOMEN LIMITED, 05/07/2019, 12:08. ? FINDINGS:? Previously identified hyperechoic areas within the left hepatic lobe are not visualized on current exam.? Gallbladder demonstrates no stones.? Wall thickness is normal measuring 1.9 mm. Common bile duct measures 4 mm. ? IMPRESSION:? No visualized gallstones or wall thickening. ? ? Dictated by: Shannon Viera M.D. on 06/23/2022 at 18:03 ? ? Approved by: Shannon Viera M.D. on 06/23/2022 at 18:04 ? MDM Narrative Medical decision making narrative: MDM * differential diagnosis includes but not limited to cholecystitis, choledocholithiasis, cholangitis, pancreatitis, small-bowel obstruction, gastroenteritis * Prior records reviewed: Patient was seen here approximately 4 years ago for similar symptoms. CT and right upper quadrant ultrasound were negative for any acute findings other than hepatic steatosis. * My lab interpretation: Lab work unremarkable, no evidence of leukocytosis or infection or elevated liver enzymes * My imgaing interpretation: Right upper quadrant ultrasound negative for any abnormal gallbladder findings * Clinical Decision Rules/Scores evaluated: None * Independent discussions with: None ED Course: This is a 41-year-old female presents to the emergency department complaining of a ?squeezing? sensation to her epigastric area. Lipase was within normal limits and low concern for any pancreatitis. Right upper quadrant ultrasound was negative for any gallbladder dysfunction. Recommend patient follow up with her primary care provider for further evaluation and workup of her symptoms. Shared decision-making utilized and no CT ordered Social Considerations: None Disposition: Discharged to home <Nick Casas MD - Last Filed: 06/29/22 09:18> Lab Data Labs: Lab Results 06/23/22 06/23/22 Range/Units 16:30 16:30 WBC 7.7 (4.5-11.0) X10^3/uL RBC 4.25 (4.0-5.2) X10^6/uL Hgb 13.5 (12.0-16.0) g/dL Hct 38.5 (36-46) % MCV 90.7 (80-100) fL MCH 31.8 (26-34) PG MCHC 35.1 (30-36) % RDW 11.7 (11.6-14.8) % Plt Count 272 (150-400) X10^3/uL Neut % (Auto) 53.1 (50-75) % Lymph % (Auto) 39.5 (25-40) % [place] % (Auto) 5.0 (3-14) % Eos % (Auto) 1.9 L (2-4) % Baso % (Auto) 0.5 (0-2) % Neut # (Auto) 4100 (3213-8021) /uL Lymph # (Auto) 3000 (7369-4813) /uL [place] # (Auto) 400 (0-900) /uL Eos # (Auto) 100 (0-450) /uL Baso # (Auto) 0 (0-100) /uL Sodium 138 (137-145) mmol/L Potassium 3.5 (3.4-5.1) mmol/L Chloride 100 (98-107) mmol/L Carbon Dioxide 29 (22-32) mmol/L BUN 11 (7-17) mg/dL Creatinine 0.62 (0.52-1.04) mg/dL Estimated GFR > 60 (>60) mL/min BUN/Creatinine Ratio 17.7 (6-22) Glucose 95 (70-100) mg/dL Calcium 8.9 (8.4-10.2) mg/dL Total Bilirubin 0.2 (0.2-1.3) mg/dL AST 32 (14-36) IU/L ALT 28 (<35) IU/L Alkaline Phosphatase 61 (38-126) U/L Total Protein 7.2 (6.3-8.2) g/dL Albumin 4.3 (3.5-5.0) g/dL Globulin 2.9 (1.7-4.1) g/dL Albumin/Globulin Ratio 1.5 (1.0-2.8) Lipase 75 (23-300) U/L Discharge Plan Departure Patient Disposition: Home Clinical Impression: Abdominal pain Instructions: DI for Abdominal Pain-Adult Activity Restrictions/Additional Instructions: Thank you for coming to the [facility] Emergency Department today. Your lab work today was completely unremarkable. The lab tests we order to check your pancreas was within normal limits and showed no evidence of pancreatitis. Your blood work checking for any kind of infection was also negative as you had no white blood cell count. All of your electrolytes were within normal limits as well and your kidney function appeared to be normal as well. The ultrasound we ordered to check for gallbladder abnormalities was normal as well. Please follow-up with your primary care provider for further workup if your pain continues. I hope you feel better soon. Prescriptions: No Action fluticasone propion-salmeterol INHALATION estradiol [Estrace] 1 mg tablet 1 mg PO DAILY albuterol sulfate [ProAir HFA] 90 mcg/actuation HFA aerosol inhaler 1 puff inhalation PRN PRN (Reason: Shortness Of Breath) Label Comments: not routinely Advair HFA 230-21 mcg/actuation HFA aerosol inhaler 1 puff inhalation BID Label Comments: patient states not routinely Berberine 1 dose PO DAILY Label Comments: naturepatchic med Blue [place] 1 dose PO DIRECTED Label Comments: naturepathic medication Referrals: Asia Lo ARNP [Primary Care Provider] - Stand Alone Forms: Patient Portal/API <Nick Casas MD - Last Filed: 06/29/22 09:18> Cosign ED Attending Cosignature Attestation: I was immediately available in the department for consultation. ?This documentation has been reviewed and I agree with assessment and plan. Supervised by Nick Casas MD
[2022-06-23 17:16] LABS: Alanine Aminotransferase 28 IU/L (<35); Albumin 4.3 g/dL (3.5-5.0); Albumin Globulin Ratio 1.5 (1.0-2.8); Alkaline Phosphatase 61 U/L (38-126); Aspartate Aminotransferase 32 IU/L (14-36); BUN Creatinine Ratio 17.7 (6-22); Bilirubin Total 0.2 mg/dL (0.2-1.3); Blood Urea Nitrogen 11 mg/dL (7-17); Calcium 8.9 mg/dL (8.4-10.2); Carbon Dioxide 29 mmol/L (22-32); Chloride 100 mmol/L (98-107); Estimated Glomerular Filt Rate > 60 mL/min (>60); Globulin 2.9 g/dL (1.7-4.1); Glucose 95 mg/dL (70-100); HEMOLYSIS < 15 (0-50); Lipase 75 U/L (23-300); Potassium 3.5 mmol/L (3.4-5.1); Sodium 138 mmol/L (137-145); Total Protein 7.2 g/dL (6.3-8.2)
[2022-06-23] MEDS: KETOROLAC 30 MG/ML VIAL 15 MG IV (18:13)
[2022-06-23 18:48] VITALS: BP 130/73; PULSE 55; RESP 18; O2SAT 99
== END 2022-06-23 18:49 | disposition home or self-care (01) ==
PROVIDERS: Emergency Medicine; Emergency Provider Physician Assistant Medical; PCP Registered Nurse
DX: R10.13 Epigastric pain (principal)
CPT/HCPCS: 36415; 76705; 80053; 83690; 85025; 96374; 99284; J1885

== ENCOUNTER → 2023-07-24 16:53 | Outpatient (CLI) | payer OTHER, SELFPAY ==
--- NOTE | 2023-07-24 | DI.MG.S_ITS ---
BILATERAL DIGITAL SCREENING MAMMOGRAM 3D/2D WITH CAD: 07/24/2023 CLINICAL: Routine screening. Comparison is made to exams dated: 06/17/2022 mammogram, 04/13/2021 mammogram, and 04/10/2020 mammogram - [facility]. Both breasts are heterogeneously dense, which may obscure small masses (category c / 51-75% glandular tissue). Current study was also evaluated with a Computer Aided Detection (CAD) system. No significant masses, calcifications, or other findings are seen in either breast. There has been no significant interval change. IMPRESSION: NEGATIVE There is no mammographic evidence of malignancy. A 1 year screening mammogram is recommended. Based on the Tyrer Cuzick model (a risk assessment model) the patient's lifetime risk is 8.3% and her 10 year risk is 1.4%. According to the ACR, ACS, and NCCN guidelines, an annual breast MRI exam along with mammogram is recommended if the patient's lifetime risk is 20% or greater. This exam was interpreted at Station ID: [id number]. NOTE: For mammograms, a report in lay terms will be sent to the patient. Approximately 15% of breast malignancies will not be visualized mammographically. In the management of a palpable breast mass, a negative mammogram must not discourage biopsy of a clinically suspicious lesion. Electronically Signed By: Mireille Ramirez M.D., PH.D eb/penrad:07/25/2023 11:51:30 copy to: Katharine Jones letter sent: Normal Exam ACR BI-RADS Category 1: Negative 3341F
== END ==
LOC: MAMMO 16:54
PROVIDERS: PCP Registered Nurse; Referring Provider Registered Nurse; Visit Provider Registered Nurse
DX: Z12.31 Encounter for screening mammogram for malignant neoplasm of breast (principal); R92.333 Mammographic heterogeneous density, bilateral breasts
CPT/HCPCS: 77063; 77067

== ENCOUNTER → 2023-12-06 15:30 | Outpatient (CLI) | payer OTHER, SELFPAY | PROVIDERS: PCP Nurse Practitioner Family; Referring Provider Nurse Practitioner Family; Visit Provider Nurse Practitioner Family | DX: R10.11 Right upper quadrant pain (principal); R10.13 Epigastric pain ==

== ENCOUNTER → 2023-12-07 | Outpatient (CLI) | payer OTHER, SELFPAY ==
--- NOTE | 2023-12-07 07:09 | DI.US.S_ITS ---
PROCEDURE: US ABDOMEN LIMITED INDICATIONS: R/O GALLBLADDER ISSUES /RT EPIGASTRIC AND ABD PAIN TECHNIQUE: Real-time scanning was performed of the abdominal and retroperitoneal organs, with image documentation. COMPARISON: None. FINDINGS: Liver: Liver is normal in size and homogeneous in echotexture. Gallbladder: Gallbladder shows no calculi or filling defects. No thickening of the gallbladder wall. No pericholecystic fluid. Biliary ducts: Intrahepatic bile ducts are non-dilated. Extrahepatic bile duct caliber measures 7 mm. Normal is 6-7 mm or less in diameter, or 10 mm or less post-cholecystectomy. Pancreas: Visualized portions of the pancreas are sonographically normal. Miscellaneous: No free abdominal fluid. IMPRESSION: Common bile duct is mildly ectatic. No acute abnormality demonstrated. Dictated by: Gomez Dupont M.D. on 12/07/2023 at 14:00 Approved by: Gomez Dupont M.D. on 12/07/2023 at 14:08
== END ==
LOC: US 07:08
PROVIDERS: PCP Nurse Practitioner Family; Referring Provider Nurse Practitioner Family; Visit Provider Nurse Practitioner Family
DX: R10.11 Right upper quadrant pain (principal); R10.13 Epigastric pain
CPT/HCPCS: 76705

== ENCOUNTER → 2024-06-08 15:37 | Outpatient (CLI) | payer OTHER, SELFPAY ==
--- NOTE | 2024-06-08 15:39 | DI.MRI.S_ITS ---
PROCEDURE: MR KNEE LT WO CON INDICATIONS: Unspecified internal derangement of left knee TECHNIQUE: Noncontrast sagittal PD fast spin echo and T2 fast spin echo with fat saturation, sagittal 3-D FLASH with fat saturation; coronal T1 spin echo and PD fast spin echo with fat saturation, and axial PD fast spin echo with fat saturation through the knee. COMPARISON: None. FINDINGS: Image quality: Excellent. Menisci: Subtle signal abnormality involving posterior periphery of posterior horn medial meniscus extending to inferior articulating surface concerning for subtle oblique tear in this area. The lateral meniscus is intact. The meniscal root ligaments appear intact. Cruciate ligaments: The anterior and posterior cruciate ligaments appear intact. Medial structures: The medial collateral ligament appears intact. Visualized portions of the pes anserinus tendons appear normal. No abnormal bursal fluid. Lateral structures: The lateral collateral ligament, long and short heads of the biceps femoris tendon appear intact. The popliteus tendon appears normal. Iliotibial band appears normal. Anterior structures: Distal quadriceps tendinosis at its superior patellar insertion is seen. The patellar tendon is intact. Patellar alignment is normal. Bones and cartilage: No bone marrow contusions or fractures. The cartilage of the medial and lateral femorotibial compartments appears normal in thickness. 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 Joint space: There is small knee joint fluid. No Ta's cyst. Normal appearing synovial plicae are incidentally noted. IMPRESSION: 1. Finding is concerning for subtle oblique tear involving posterior periphery of posterior horn medial meniscus extending to inferior articulating surface. The lateral meniscus is intact. 2. The cruciate ligaments are intact. 3. Distal quadriceps tendinosis at its superior patellar insertion. The patellar tendon is intact. 4. 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 No fracture or dislocation. Small joint effusion, no loose bodies. Dictated by: Eric Beck M.D. on 06/10/2024 at 13:01 Approved by: Eric Beck M.D. on 06/10/2024 at 13:04
== END ==
PROVIDERS: PCP Nurse Practitioner Family; Referring Provider Orthopaedic Surgery Foot and Ankle Surgery; Visit Provider Orthopaedic Surgery Foot and Ankle Surgery
DX: M23.92 Unspecified internal derangement of left knee (principal); M22.42 Chondromalacia patellae, left knee; M25.462 Effusion, left knee
CPT/HCPCS: 73721